=== PATIENT | male | born 1935 | race Caucasian/White ===

== ENCOUNTER 2016-06-10 11:23 | Inpatient (IN) | payer OTHER ==
[2016-06-10 11:56] LABS: % IMMATURE GRANULYOCYTES 0.6 % (0.0-1.1); ABSOLUTE IMMATURE GRANULOCYTES 0.04 10^3/uL (0.00-0.10); ADD DIFF? NO; ADD MORPH? NO; ADD SCAN? NO; ATYPICAL LYMPHOCYTE FLAG 0 (0-99); FRAGMENT RBC FLAG 0 (0-99); HEMATOCRIT 57.7 % (40.0-51.0); HEMOGLOBIN 19.3 g/dL (13.7-17.5); LEFT SHIFT FLG 10 (0-99); LIPEMIA HEMOLYSIS FLAG 80 (0-99); MEAN CELL HEMOGLOBIN 30.9 pg (27.9-34.1); MEAN CELL HEMOGLOBIN CONCENTR. 33.4 g/dL (32.4-36.7); MEAN CELL VOLUME 92.5 fL (81.5-99.8); MEAN PLATELET VOLUME 10.7 fL (8.7-11.7); PLATELET CLUMPS FLAG 0 (0-99); PLATELET COUNT 110 10^3/uL (150-400); RED BLOOD CELL COUNT 6.24 10^6/uL (4.40-6.38); RED CELL DISTRIBUTION WIDTH 14.5 % (11.5-15.2)
[2016-06-10] MEDS ORDERED: NS 500 ML IV ONE (11:58)
[2016-06-10 12:06] LABS: ALANINE AMINOTRANSFERASE 26 IU/L (21-72); ALBUMIN 3.7 g/dL (3.5-5.0); ALKALINE PHOSPHATASE 102 IU/L (38-126); ANION GAP 16 mEq/L (8-16); ASPARTATE AMINOTRANSFERASE 38 IU/L (17-59); BILIRUBIN,TOTAL 1.7 mg/dL (0.1-1.4); BILIRUBIN-CONJUGATED 0.5 mg/dL (0.0-0.5); BILIRUBIN-UNCONJUGATED 1.2 mg/dL (0.0-1.1); CALCIUM 9.2 mg/dL (8.5-10.4); CARBON DIOXIDE 23 mEq/l (22-31); CHLORIDE 105 mEq/L (97-110); CREATININE 1.5 mg/dL (0.7-1.3); GLOMERULAR FILTRATION RATE 45; GLUCOSE 99 mg/dL (70-100); POTASSIUM 4.3 mEq/L (3.5-5.2); SODIUM 144 mEq/L (134-144); TOTAL PROTEIN 6.9 g/dL (6.3-8.2)
[2016-06-10 12:13] LABS: APTT 24.5 SEC (23.0-38.0); INR 1.06 (0.83-1.16); PROTIME(PATIENT) 13.7 SEC (12.0-15.0)
--- NOTE | 2016-06-10 12:28 | EDPHY ---
H & P Stated Complaint: ?UTI/Weakness HPI/ROS: CHIEF COMPLAINT: weakness HISTORY OF PRESENT ILLNESS: approximately 2 weeks of weakness. The spouse reports that he has been increasingly weakening. No specific areas of complaint. This morning she reports that to scan her nearly an hour ago and from the restroom back in 2 bed. He has had no chest pain during any of this. No cough or fever. No headache or dizziness. No syncope. No urinary complaints but the spouse is concern about a urinary tract infection. He denies any specific systematic complaints other than generalized weakness. No particular modifying factors for this as it has steadily worsened. No alleviating factors of any kind despite [id number] medications have attempted. During my examination he is confused, and she reports that he has not been confused at home. No other associated complaints or modifying factors. REVIEW OF SYSTEMS: Ten systems reviewed and are negative unless otherwise noted in the HPI EXAMINATION General Appearance: Alert, no distress Head: normocephalic, atraumatic Eyes: Pupils equal and round, no conjunctival pallor or injection . EOM intact. ENT, Mouth: Mucous membranes Dry. Uvula midline. No lesions or edema. Neck: Normal inspection, supple, non-tender . Painless range of motion all planes. No meningismus. Respiratory: No rhonchi wheezing, consolidation, diminishment or distress. Cardiovascular: Regular rate and rhythm . No murmur. Pulses are intact distally Gastrointestinal: Abdomen is obese, soft and nontender. no CVA tenderness. No tympany rigidity. Neurological: Alert to person and place. Disoriented to time. strength is symmetric in all limbs. No sensory deficits. No unilateral abnormalities. No pronator drift or dysmetria. Skin: Warm and dry, no rash Extremities: Nontender, no pedal edema Psychiatric: Mood and affect normal DIFFERENTIAL DIAGNOSES: Including but not limited to Acute delirium, urinary tract infection, pneumonia, electrolyte disturbance, acute kidney injury, hepatic encephalopathy MDM: 11:45 a.m. increasing weakness over the past 2 days to weeks. No focal complaints. No focal findings on examination other than mild disorientation to time. No evidence of stroke by examination. Vital signs are stable. Labs and chest x- ray are pending at this time. is at bedside and has corroborated all this information. 1:05 p.m. I have re-evaluated the patient. Urinalysis does reveal evidence of acute urinary tract infection. Labs are otherwise within acceptable limits %period% creatinine is 1.5, but his actually reports that he has been diagnosed as stage III kidney dysfunction so this is an improvement. At time of arrival his vital signs were well within normal limits and he did not meet criteria for sepsis workup. However he is now tachycardic at 1:05 a.m. at this point. Thus I have ordered blood cultures and a lactic acid. Plan for admission with IV fluid resuscitation and antibiotic coverage. He remains awake and alert and hemodynamically stable with a normotensive pressure. His confusion from earlier has resolved and he is now alert to person place and time. I will discuss the case with hospitalist for admission.disposition and care 1:15 p.m. at this time, care the patient will be assumed by Dr. Mckeon. I have already admitted this patient to the hospital. I did order blood cultures and lactic acid and discussed the nature of his illness and the likely that he is septic. He is not in septic shock by examination vitals, but the lactic acid is pending at this time. Please see his note for final disposition and further information. EKG: Interpreted by Dr. Mckeon SUPERVISION: Patient was evaluated in conjunction with the supervising physician. Please see their note for details. Source: Patient - Personal History Current Tetanus/Diphtheria Vaccine: Yes Current Tetanus Diphtheria and Acellular Pertussis (TDAP): Yes Tetanus Vaccine Date: unsure - Medical/Surgical History Hx Asthma: No Hx Chronic Respiratory Disease: No Hx Diabetes: No Hx Cardiac Disease: No Hx Renal Disease: Yes Hx Cirrhosis: No Hx Alcoholism: No Hx HIV/AIDS: No Hx Splenectomy or Spleen Trauma: No Other PMH: ESRD STAGE 3, L HIP RIPLACEMENT - Social History Smoking Status: Never smoked Constitutional: Initial Vital Signs Temperature (C) 97.5 F 06/10/16 11:32 Heart Rate 80 06/10/16 11:32 Respiratory Rate 14 06/10/16 11:32 Blood Pressure 149/97 H 06/10/16 11:32 O2 Sat (%) 94 06/10/16 11:32 O2 Delivery Mode Room Air Allergies/Adverse Reactions: Penicillins Allergy (Verified 06/10/16 11:31) Home Medications: Medication Instructions Recorded Aspirin [Aspirin 81mg (OTC)] 81 mg PO DAILY 02/10/13 Atorvastatin Calcium [Lipitor 80 80 mg PO HS 02/10/13 mg] LORazepam [Ativan 0.5 mg (RX)] 0.5 mg PO HS PRN 02/10/13 Losartan Potassium [Cozaar] 50 mg PO DAILY 02/10/13 Medical Decision Making - Data Points Laboratory Results: Laboratory Results 06/10/16 11:25 06/10/16 11:25 06/10/16 06/10/16 06/10/16 15:44 13:18 12:32 WBC RBC Hgb Hct MCV MCH MCHC RDW Plt Count MPV Neut % (Auto) Lymph % (Auto) [place] % (Auto) Eos % (Auto) Baso % (Auto) Nucleat RBC Rel Count Absolute Neuts (auto) Absolute Lymphs (auto) Absolute Monos (auto) Absolute Eos (auto) Absolute Basos (auto) Absolute Nucleated RBC Immature Gran % Immature Gran # PT INR APTT VBG Lactic Acid 1.5 mmol/L 2.6 H mmol/L (0.7-2.1) (0.7-2.1) Sodium Potassium Chloride Carbon Dioxide Anion Gap BUN Creatinine Estimated GFR Glucose Calcium Total Bilirubin Conjugated Bilirubin Unconjugated Bilirubin AST ALT Alkaline Phosphatase Ammonia Creatine Kinase Total Protein Albumin Lipase Urine Color YELLOW Urine Appearance HAZY Urine pH 5.0 (5.0-7.5) Ur Specific [place] 1.019 (1.002-1.030) Urine Protein 1+ H (NEGATIVE) Urine Ketones NEGATIVE (NEGATIVE) Urine Blood 2+ H (NEGATIVE) Urine Nitrate POSITIVE H (NEGATIVE) Urine Bilirubin NEGATIVE (NEGATIVE) Urine Urobilinogen NEGATIVE EU (0.2-1.0) Ur Leukocyte Esterase 2+ H (NEGATIVE) Urine RBC 5-10 H /hpf (0-3) Urine WBC 50-182 H /hpf (0-3) Ur Epithelial Cells TRACE /lpf (NONE-1+) Urine Bacteria 4+ H /hpf (NONE SEEN) Urine Mucus 1+ /lpf (NONE-1+) Ur Culture Indicated? INDICATED H (NI) Urine Glucose NEGATIVE (NEGATIVE) 06/10/16 11:25 WBC 7.20 10^3/uL (3.80-9.50) RBC 6.24 10^6/uL (4.40-6.38) Hgb 19.3 H g/dL (13.7-17.5) Hct 57.7 H % (40.0-51.0) MCV 92.5 fL (81.5-99.8) MCH 30.9 pg (27.9-34.1) MCHC 33.4 g/dL (32.4-36.7) RDW 14.5 % (11.5-15.2) Plt Count 110 L 10^3/uL (150-400) MPV 10.7 fL (8.7-11.7) Neut % (Auto) 81.0 H % (39.3-74.2) Lymph % (Auto) 6.4 L % (15.0-45.0) [place] % (Auto) 11.0 % (4.5-13.0) Eos % (Auto) 0.4 L % (0.6-7.6) Baso % (Auto) 0.6 % (0.3-1.7) Nucleat RBC Rel Count 0.0 % (0.0-0.2) Absolute Neuts (auto) 5.84 10^3/uL (1.70-6.50) Absolute Lymphs (auto) 0.46 L 10^3/uL (1.00-3.00) Absolute Monos (auto) 0.79 10^3/uL (0.30-0.80) Absolute Eos (auto) 0.03 10^3/uL (0.03-0.40) Absolute Basos (auto) 0.04 10^3/uL (0.02-0.10) Absolute Nucleated RBC 0.00 10^3/uL (0-0.01) Immature Gran % 0.6 % (0.0-1.1) Immature Gran # 0.04 10^3/uL (0.00-0.10) PT 13.7 SEC (12.0-15.0) INR 1.06 (0.83-1.16) APTT 24.5 SEC (23.0-38.0) VBG Lactic Acid Sodium 144 mEq/L (134-144) Potassium 4.3 mEq/L (3.5-5.2) Chloride 105 mEq/L (97-110) Carbon Dioxide 23 mEq/l (22-31) Anion Gap 16 mEq/L (8-16) BUN 32 H mg/dL (7-23) Creatinine 1.5 H mg/dL (0.7-1.3) Estimated GFR 45 Glucose 99 mg/dL (70-100) Calcium 9.2 mg/dL (8.5-10.4) Total Bilirubin 1.7 H mg/dL (0.1-1.4) Conjugated Bilirubin 0.5 mg/dL (0.0-0.5) Unconjugated Bilirubin 1.2 H mg/dL (0.0-1.1) AST 38 IU/L (17-59) ALT 26 IU/L (21-72) Alkaline Phosphatase 102 IU/L (38-126) Ammonia < 9.0 L uMOL/L (9.0-30.0) Creatine Kinase 138 IU/L (0-224) Total Protein 6.9 g/dL (6.3-8.2) Albumin 3.7 g/dL (3.5-5.0) Lipase 146.0 IU/L (23-300) Urine Color Urine Appearance Urine pH Ur Specific [place] Urine Protein Urine Ketones Urine Blood Urine Nitrate Urine Bilirubin Urine Urobilinogen Ur Leukocyte Esterase Urine RBC Urine WBC Ur Epithelial Cells Urine Bacteria Urine Mucus Ur Culture Indicated? Urine Glucose Medications Given: Discontinued Medications Sodium Chloride (Ns) 500 mls @ 0 mls/hr IV ONCE ONE PRN Reason: As Directed Stop: 06/10/16 11:59 Last Admin: 06/10/16 12:23 Dose: 500 mls Ceftriaxone Sodium/Dextrose (Rocephin 1 Gm (Premix)) 50 mls @ 100 mls/hr IV EDNOW ONE PRN Reason: Protocol Stop: 06/10/16 13:37 Last Admin: 06/10/16 13:56 Dose: 50 mls Sodium Chloride (Ns) 1,000 mls @ 0 mls/hr IV ONCE ONE PRN Reason: Wide Open Stop: 06/10/16 13:09 Last Admin: 06/10/16 13:57 Dose: 1,000 mls Sodium Chloride (Ns *For Sepsis Order Set Only*) 2,341 ml IV EDNOW ONE Stop: 06/10/16 14:02 Last Admin: 06/10/16 14:18 Dose: 2,341 ml Departure - Departure Disposition: [facility] Acute Clinical Impression: Weakness, Encephalopathy, Sepsis due to urinary tract infection Condition: Good Referrals: Patient,NotPresent [Primary Care Provider] - As per Instructions
--- NOTE | 2016-06-10 12:39 | DX ---
PA and lateral chest. Clinical History: Possible pneumonia Comparison Study: None available. Findings: No focal infiltrate or pleural effusion is identified. Heart size is upper normal.. On the lateral radiograph, there is incomplete inspiration with asymmetric elevation of the right hem idiaphragm. Moderate tortuosity of the descending thoracic aorta is compatible with atherosclerotic and/or hypert ensive vascular disease.. Impression: Negative for pneumonia.
[2016-06-10 12:44] LABS: COLOR YELLOW; LEUKOCYTE ESTERASE,URINE 2+ (NEGATIVE); NITRITE,URINE POSITIVE (NEGATIVE)
[2016-06-10 12:55] LABS: BACTERIA 4+ /hpf (NONE SEEN); MUCUS 1+ /lpf (NONE-1+); WBC,URINE 50-182 /hpf (0-3)
[2016-06-10] MEDS ORDERED: NS 1,000 ML IV ONE (13:08)
--- NOTE | 2016-06-10 13:59 | CPEKG ---
Heart Rate: 73 RR Interval: 822 P-R Interval: 180 QRSD Interval: 92 QT Interval: 404 QTC Interval: 446 P Vian: 3 QRS Vian: 10 T Wave Vian: 3 EKG Severity - BORDERLINE ECG - EKG Impression: SINUS RHYTHM EKG Impression: BORDERLINE T ABNORMALITIES, INFERIOR LEADS Electronically Signed By: Agustín Mills 11-Jun-2016 14:52:33
[2016-06-10] MEDS ORDERED: NS 1,000 ML BAG *FOR SEPSIS ORDER SET ONLY IV ONE (14:01)
[2016-06-10 14:27] LABS: LACGHOST ORDER
[2016-06-10] MEDS ORDERED: ONDANSETRON 4 MG/2 ML VIAL IVP PRN (15:09)
[2016-06-10] MEDS ORDERED: ONDANSETRON DISINTEGRATING 4 MG TAB PO PRN (15:09)
--- NOTE | 2016-06-10 16:56 | GHP ---
[f rep st] HISTORY AND PHYSICAL DATE OF ADMISSION: 06/10/2016 CHIEF COMPLAINT: Weakness. HISTORY OF PRESENT ILLNESS: The patient is an 81-year-old male, whose noticed approximately 3 w eeks ago that he developed increasing weakness and continued mild confusion. The patient is confused , and difficult to obtain a history from, his is at the bedside. She states that she noticed in November the patient began to develop some generalized weakness, not being able to ambulate long dista nces anymore, however, over the past 3 weeks he has continued to become altered in his mentation and unable to ambulate independently secondary to this acute weakness. He has not complained of any ches t pain, dyspnea, or shortness of breath. He has not had any cough or fever per the patient's . He denies any headache and not complained of any dizziness. He has not had any syncopal episodes. Shay leiva does not have any urinary complaints, however, the states that he has had more frequent urinat ions. The patient denies any specific complaints at this time. REVIEW OF SYSTEMS: A comprehensive 10-point review of systems is negative, other than noted in the H PI. PAST MEDICAL HISTORY: 1. PFO revision. 2. Hypertension. 3. Hyperlipidemia. 4. Hydrocele. 5. Stage III renal disease. 6. Brain aneurysm. PAST SURGICAL HISTORY: 1. PFO revision. 2. Left hip replacement. ALLERGIES: To penicillin. HOME MEDICATIONS: Lipitor, Ativan, Cozaar, aspirin. The patient tells me he is not taking his medic ations regularly as scheduled. SOCIAL HISTORY: The patient resides with his , he denies any tobacco use. He states that he dri nks 1 to 2 alcoholic beverages a day. PHYSICAL EXAM: GENERAL: The patient is disheveled, unkempt, confused, slow to answer questions. DANIEL SIGNS: Afebrile at 97.5, pulse is 80, respiratory rate 14, blood pressure is 149/97, he is satur ating 94% on room air. HEENT: Normocephalic, atraumatic. Mucosal membranes are dry. Pupils equal, round, reactive to light. No abnormalities identified. NECK: Supple, nontender. RESPIRATORY: Re ngs clear to auscultation bilaterally. No rhonchi or wheezes appreciated. CARDIOVASCULAR: Regular rate and rhythm, no gallop or murmur noted. GASTROINTESTINAL/ABDOMEN: Bowel sounds are positive, so ft and nontender. No CVA tenderness. NEUROLOGIC: The patient is mildly disoriented, he is focally intact, is symmetrical in all limbs. SKIN: Warm and dry, with no rashes or lesions identified. EXT REMITIES: Within normal limits. There is no clubbing or cyanosis noted, no pedal edema. FAMILY HISTORY: Family history was reviewed and noncontributory. LABORATORY DATA: Hemoglobin 19.3 with hematocrit of 57.7. BUN of 32, with a creatinine of 1.5, tota l bilirubin is 1.7. Abnormal urinalysis. Blood cultures and urine cultures pending. Reports, EKG n otes a sinus rhythm. Chest x-ray personally reviewed, negative for pneumonia. ASSESSMENT AND PLAN: The patient is an 81-year-old male who presented to the emergency room with his spouse secondary to complaints of weakness. He has been evaluated and will continue treatment for: 1. A urinary tract infection. The patient may require a urology consult during this hospitalization . He does have a history of hydrocele, this does not appear to be a complication or present at this time. We will continue intravenous Rocephin, and await urine culture results. 2. Acute altered mental status. The patient is disoriented to place and time intermittently, I susp ect this is likely secondary to his acute infectious process, however, it could be evidence of furthe r brain involvement. I have discussed with the patient's regarding ordering an MRI of his brain as he does have a history of aneurysm and potential stroke activity. She wishes to hold off at this time, as she does not feel it would be beneficial in treatment. I assured her that the option could be revisited during the patient's hospitalization if he does not continue to improve and clear after treatment of his urinary tract infection. She is in agreement with this plan. She is not intereste d in adding any further daily medications to the patient's regimen such as aspirin or Plavix. She wi shes to await Neurology consult, as well as an MRI for further diagnostic management. 3. Dehydration. We will continue to hydrate the patient during this hospital course, and I anticipa te he will respond appropriately to intravenous fluids. 4. Stage III renal disease. We will repeat laboratory evaluations in the morning, after the patient has been thoroughly hydrated. 5. History of hypertension. The patient tells me that he does not take his antihypertensive medicat ions on a daily basis, he takes them as needed based on his blood pressure. We will need to further educate the patient, as well as his , regarding the necessity to be consistent with his medicatio ns at home. DISPOSITION: The patient will be admitted to observation status. We will continue to treat him supp ortively during this hospitalization with antibiotic therapy and IV fluids. If he requires more supp ortive management in the hospital setting he may transition to inpatient status. We will have Physic al Therapy and Occupational Therapy evaluate the patient during this hospitalization. He has also be en placed on Lovenox for DVT prophylaxis. I already reviewed the case with Patient's Care with Dr. Niki Cosme. /[id number]/MODL
[2016-06-10] MEDS: HEPARIN 5,000 UNIT/0.5 ML SYR SC SCH (20:33)
[2016-06-10] MEDS: NS 1,000 ML IV SCH (20:33)
[2016-06-10] MEDS: LORazepam 0.5 MG TAB PO PRN (20:33)
[2016-06-10] MEDS: ATORVASTATIN CALCIUM 40 MG TAB PO SCH (20:33)
[2016-06-10] MEDS: ACETAMINOPHEN 325 MG TAB PO PRN (20:34)
[2016-06-11] MEDS: HEPARIN 5,000 UNIT/0.5 ML SYR SC SCH ×3 (05:10→19:19)
[2016-06-11] MEDS: NS 1,000 ML IV SCH (05:10)
[2016-06-11 05:46] LABS: HEMATOCRIT 43.8 % (40.0-51.0); HEMOGLOBIN 14.9 g/dL (13.7-17.5); MEAN CELL HEMOGLOBIN 31.2 pg (27.9-34.1); MEAN CELL VOLUME 91.6 fL (81.5-99.8); RED BLOOD CELL COUNT 4.78 10^6/uL (4.40-6.38); RED CELL DISTRIBUTION WIDTH 13.6 % (11.5-15.2)
[2016-06-11 05:54] LABS: ANION GAP 6 mEq/L (8-16); CARBON DIOXIDE 21 mEq/l (22-31); CHLORIDE 114 mEq/L (97-110); CREATININE 1.1 mg/dL (0.7-1.3); GLOMERULAR FILTRATION RATE > 60; GLUCOSE 92 mg/dL (70-100); POTASSIUM 4.3 mEq/L (3.5-5.2); SODIUM 141 mEq/L (134-144)
[2016-06-11] MEDS: ASPIRIN 81 MG CHEWABLE TAB PO SCH (08:10)
[2016-06-11] MEDS: LOSARTAN POTASSIUM 50 MG TAB PO SCH (08:10)
[2016-06-11] MEDS ORDERED: ENOXAPARIN 30 MG/0.3 ML SYR SC SCH (09:00)
--- NOTE | 2016-06-11 16:19 | HOSPPROG ---
Hospitalist Progress Note Assessment/Plan: UTI - UCx growing GNR Acute encephalopathy likely secondary to infection - Improving. BERNARDINO - Cr normalized to 1.1 from 1.5 after IV hydration overnight. His po intake is good, will dc IVF's for now. DVT PPLX - JOHANNY DNR Dispo - cont inpt Objective: Vital Signs Temp Pulse Resp BP Pulse Ox 36.7 C 67 20 141/88 H 90 L 06/11/16 16:03 06/11/16 16:03 06/11/16 16:03 06/11/16 16:03 06/11/16 16:03 Laboratory Results 06/11/16 05:36 06/11/16 05:36 06/10/16 06/11/16 06/12/16 05:59 05:59 05:59 Intake Total 2400 Output Total 1 Balance 2399 PT 13.7 SEC (12.0-15.0) 06/10/16 11:25 INR 1.06 (0.83-1.16) 06/10/16 11:25 - Physical Exam Constitutional: no apparent distress Eyes: PERRL Ears, Nose, Mouth, Throat: moist mucous membranes Cardiovascular: regular rate and rhythym Respiratory: no respiratory distress Gastrointestinal: normoactive bowel sounds, soft, non-tender abdomen Skin: warm Psychiatric: encephalopathic ICD10 Worksheet Patient Problems: Problems Problem Status Diagnosed Encephalopathy Acute Sepsis secondary to UTI Acute Weakness Acute Stroke of unknown etiology Acute
[2016-06-11] MEDS: ATORVASTATIN CALCIUM 40 MG TAB PO SCH (19:29)
[2016-06-11] MEDS: LORazepam 0.5 MG TAB PO PRN (19:29)
[2016-06-12 06:27] LABS: ANION GAP 5 mEq/L (8-16); CALCIUM 8.2 mg/dL (8.5-10.4); CARBON DIOXIDE 21 mEq/l (22-31); CHLORIDE 110 mEq/L (97-110); GLOMERULAR FILTRATION RATE > 60; GLUCOSE 90 mg/dL (70-100); POTASSIUM 4.3 mEq/L (3.5-5.2); SODIUM 136 mEq/L (134-144)
[2016-06-12] MEDS: HEPARIN 5,000 UNIT/0.5 ML SYR SC SCH ×3 (06:32→22:00)
[2016-06-12 08:06] LABS: % IMMATURE GRANULYOCYTES 0.4 % (0.0-1.1); ABSOLUTE IMMATURE GRANULOCYTES 0.02 10^3/uL (0.00-0.10); ADD DIFF? NO; ADD MORPH? NO; ADD SCAN? NO; ATYPICAL LYMPHOCYTE FLAG 40 (0-99); FRAGMENT RBC FLAG 0 (0-99); HEMATOCRIT 43.2 % (40.0-51.0); HEMOGLOBIN 14.7 g/dL (13.7-17.5); LEFT SHIFT FLG 0 (0-99); LIPEMIA HEMOLYSIS FLAG 90 (0-99); MEAN CELL VOLUME 88.2 fL (81.5-99.8); MEAN PLATELET VOLUME 9.8 fL (8.7-11.7); PLATELET CLUMPS FLAG 0 (0-99); PLATELET COUNT 93 10^3/uL (150-400); RED CELL DISTRIBUTION WIDTH 13.3 % (11.5-15.2)
[2016-06-12] MEDS: ASPIRIN 81 MG CHEWABLE TAB PO SCH (09:04)
[2016-06-12] MEDS: LOSARTAN POTASSIUM 50 MG TAB PO SCH (09:04)
--- NOTE | 2016-06-12 15:54 | HOSPPROG ---
Hospitalist Progress Note Assessment/Plan: UTI - UCx growing plunkett-sensitive e coli, cont ceftriaxone. He has urgency and incontinence, query overflow incontinence. Will check bladder scan and PSA in am. Will perform BHAVIK tomorrow after PSA drawn to evaluate for prostate enlargement and possible BRADY as contributory factor to UTI. Acute encephalopathy likely secondary to infection - Improving. Gait instability - query urinary retention, check bladder scan as above. BERNARDINO - Cr normalized to 1.1 from 1.5 after IV hydration overnight. His po intake is good, will dc IVF's for now. DVT PPLX - JOHANNY DNR Dispo - cont inpt, PT recommending possible SNF rehab. Will see how he progresses with ongoing treatment of infection. Subjective: Pt feels better today. More alert. No fevers. Ambulatory status improved, but still unsteady on his feet. No N/V/D. Tolerating po well. Good uop. He void voluntarily and other times and copious incontinence. Objective: Vital Signs Temp Pulse Resp BP Pulse Ox 36.7 C 61 15 129/74 H 91 L 06/12/16 08:42 06/12/16 08:42 06/12/16 08:42 06/12/16 09:04 06/12/16 08:42 Laboratory Results 06/12/16 07:55 06/12/16 05:54 06/11/16 06/12/16 06/13/16 05:59 05:59 05:59 Intake Total 3417 Balance 3417 PT 13.7 SEC (12.0-15.0) 06/10/16 11:25 INR 1.06 (0.83-1.16) 06/10/16 11:25 ICD10 Worksheet Patient Problems: Problems Problem Status Diagnosed Encephalopathy Acute Sepsis secondary to UTI Acute Weakness Acute Stroke of unknown etiology Acute
[2016-06-12] MEDS: ATORVASTATIN CALCIUM 40 MG TAB PO SCH (22:00)
[2016-06-13] MEDS: NS 1,000 ML IV SCH (01:17)
[2016-06-13 05:26] LABS: HEMATOCRIT 43.9 % (40.0-51.0); HEMOGLOBIN 14.7 g/dL (13.7-17.5); MEAN CELL HEMOGLOBIN 29.4 pg (27.9-34.1); MEAN CELL HEMOGLOBIN CONCENTR. 33.5 g/dL (32.4-36.7); MEAN CELL VOLUME 87.8 fL (81.5-99.8); RED CELL DISTRIBUTION WIDTH 13.4 % (11.5-15.2)
[2016-06-13] MEDS: HEPARIN 5,000 UNIT/0.5 ML SYR SC SCH ×3 (06:01→21:27)
[2016-06-13] MEDS: ASPIRIN 81 MG CHEWABLE TAB PO SCH ×3 (08:51→09:20)
[2016-06-13] MEDS: LOSARTAN POTASSIUM 50 MG TAB PO SCH ×2 (08:52→09:20)
--- NOTE | 2016-06-13 14:31 | HOSPPROG ---
Hospitalist Progress Note Assessment/Plan: UTI - UCx growing plunkett-sensitive e coli, cont ceftriaxone. Pt is incontinent. Bladder scan did not reveal e/o urinary retention. BHAVIK revealed enlarged prostate, PSA before exam was 4.2. Outpt Urology f/u with Dr. Hu recommended. Acute encephalopathy likely secondary to infection - Improving. I suspect he has some baseline cognitive impairment. Cog eval tomorrow. 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 This seemed to improve since admission, but he is less ambulatory today due to right foot pain. Dysphagia - new symptom last night, had a chocking event. Speech eval recommends nectar thick. Given this new symptom, along with increased difficulty with ambulation today and overall difficult historian, will check brain MRI in am to ensure no new infarct. H/O CVA - see above, MRI in am. Cont ASA, statin. Right foot pain - no obvious gouty appearance to right great toe. Will check x- ray and uric acid level. BERNARDINO - Cr normalized to 1.1 from 1.5 after IV hydration. His po intake is good. DVT PPLX - JOHANNY DNR Dispo - cont inpt, PT recommending possible SNF vs inpt rehab. CM involved. Subjective: Pt c/o right foot pain today, thinks it's gout. He is not ambulating today, which is a change. Last night, he choked on water and per his RN "had some difficulty talking". Clarification reveals this was more a hoarse voice related to choking rather than dysarthria or aphasia, though overall unclear. No fevers/chills. Objective: Vital Signs Temp Pulse Resp BP Pulse Ox 37.6 C 66 17 123/71 H 91 L 06/13/16 08:42 06/13/16 08:42 06/13/16 08:42 06/13/16 09:20 06/13/16 08:42 Laboratory Results 06/13/16 05:11 06/12/16 05:54 06/12/16 06/13/16 06/14/16 05:59 05:59 05:59 Intake Total 3417 365 Balance 3417 365 PT 13.7 SEC (12.0-15.0) 06/10/16 11:25 INR 1.06 (0.83-1.16) 06/10/16 11:25 - Physical Exam Constitutional: no apparent distress Eyes: PERRL Ears, Nose, Mouth, Throat: moist mucous membranes Cardiovascular: regular rate and rhythym Respiratory: no respiratory distress, clear to auscultation Gastrointestinal: normoactive bowel sounds, soft, non-tender abdomen Genitourinary: other (BHAVIK reveal enlarged prostate, irregular contour) Skin: warm Musculoskeletal: other (right foot with tenderness over 1st metatarsal and some associated swelling) Neurologic: AAOx3 Psychiatric: poor memory ICD10 Worksheet Patient Problems: Problems Problem Status Diagnosed Encephalopathy Acute Sepsis secondary to UTI Acute Weakness Acute Stroke of unknown etiology Acute
[2016-06-13] MEDS: INDOMETHACIN 25 MG CAP PO SCH (17:59)
--- NOTE | 2016-06-13 20:02 | DX ---
Foot, Minimum Three Views Right History: Swelling. Comparison: None. Findings: No acute fracture or dislocation identified. Diffuse soft tissue swelling. Small plantar ca lcaneal spur. Periarticular osteopenia throughout the toes, metatarsals, and tarsal bones. No definit e destructive osseous lesions. Mild osteoarthritis first metatarsophalangeal joint. Impression: 1. No definite acute fracture. 2. Diffuse osteopenia. 3. Diffuse soft tissue swelling. 4. Mild osteoarthritis first metatarsophalangeal joint. 5. No definite destructive osseous lesions. 6. Consider additional imaging.
[2016-06-13] MEDS: LORazepam 0.5 MG TAB PO PRN (21:27)
[2016-06-13] MEDS: ATORVASTATIN CALCIUM 40 MG TAB PO SCH (21:27)
[2016-06-13] MEDS: ACETAMINOPHEN 325 MG TAB PO PRN (21:28)
[2016-06-14] MEDS: NS 1,000 ML IV SCH (00:16)
[2016-06-14] MEDS: HEPARIN 5,000 UNIT/0.5 ML SYR SC SCH ×3 (05:21→22:35)
[2016-06-14 06:43] LABS: ANION GAP 4 mEq/L (8-16); CALCIUM 8.2 mg/dL (8.5-10.4); CARBON DIOXIDE 24 mEq/l (22-31); CHLORIDE 109 mEq/L (97-110); GLOMERULAR FILTRATION RATE > 60; GLUCOSE 93 mg/dL (70-100); POTASSIUM 4.3 mEq/L (3.5-5.2); SODIUM 137 mEq/L (134-144)
[2016-06-14] MEDS: ASPIRIN 81 MG CHEWABLE TAB PO SCH (09:19)
[2016-06-14] MEDS: LOSARTAN POTASSIUM 50 MG TAB PO SCH (09:19)
[2016-06-14] MEDS: INDOMETHACIN 25 MG CAP PO SCH ×2 (09:19→18:46)
--- NOTE | 2016-06-14 09:39 | MR ---
MRI of the Brain (Without Contrast) 06/14/2016 Clinical Indication: History of CVA, dysphagia and difficulty with gait. Technique: T1-weighted images were acquired axially and sagittally from the foramen magnum to the ve rtex. Axial FLAIR, fast T2-weighted, and diffusion-weighted axial images were obtained without contr ast. Findings: Severe underlying cerebellar and cerebral atrophy is present, associated with moderate to a dvanced white matter microvascular ischemic gliosis. No areas of diffusion restriction to suggest acu te cortical ischemia. There is a 5.5 x 4.8 cm cystic mass within the left temporal fossa compatible with an enlarged arachn oid cyst. Craniocervical junction and skull base appear otherwise unremarkable. Carotid and vertebral basilar f low voids are present. Impression: 1. Underlying cerebral and cerebellar atrophy with white matter microvascular ischemic gliosis. No ev idence of acute cortical ischemia. 2. 5.5 x 4.8 cm cystic mass within the left temporal fossa compatible with an arachnoid cyst.
--- NOTE | 2016-06-14 16:05 | HOSPPROG ---
Hospitalist Progress Note Assessment/Plan: # Acute UTI - UCx growing plunkett-sensitive e coli- -cont ceftriaxone # Acute urinary incontinence-Bladder scan did not reveal e/o urinary retention- BHAVIK revealed enlarged prostate, PSA before exam was 4.2 - Outpt Urology f/u with Dr. Hu recommended. 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 Cont ASA, statin. # BERNARDINO - Cr normalized to 1.0 from 1.5 after IV hydration- oxygen saturations 95 % on room air - continue to monitor # DVT PPLX - JOHANNY # DNR # Dispo - cont inpt, PT recommending possible SNF vs inpt rehab. CM involved. I have discussed the case with case management working on intermediate facility placement Subjective: denies new pain Objective: Vital Signs Temp Pulse Resp BP Pulse Ox 36.8 C 59 L 20 126/78 H 99 06/14/16 08:15 06/14/16 08:15 06/14/16 08:15 06/14/16 09:19 06/14/16 08:15 Laboratory Results 06/13/16 05:11 06/14/16 05:57 06/13/16 06/14/16 06/15/16 05:59 05:59 05:59 Intake Total 2282 Balance 2282 PT 13.7 SEC (12.0-15.0) 06/10/16 11:25 INR 1.06 (0.83-1.16) 06/10/16 11:25 - Physical Exam Constitutional: chronically ill appearing Eyes: anicteric sclera Ears, Nose, Mouth, Throat: dry mucous membranes Cardiovascular: regular rate and rhythym, systolic murmur Respiratory: no respiratory distress, no rales or rhonchi Gastrointestinal: normoactive bowel sounds, soft, non-tender abdomen Genitourinary: no bladder fullness Skin: warm, normal color Musculoskeletal: No asymmetric calves Neurologic: AAOx3 Psychiatric: interacting appropriately, not anxious Lymph, Heme, Immunologic: no cervical LAD ICD10 Worksheet Patient Problems: Problems Problem Status Diagnosed Encephalopathy Acute Sepsis secondary to UTI Acute Weakness Acute Stroke of unknown etiology Acute
[2016-06-14] MEDS: ATORVASTATIN CALCIUM 40 MG TAB PO SCH (22:36)
[2016-06-14] MEDS: COLCHICINE 0.6 MG CAP/TAB PO SCH (22:37)
[2016-06-15] MEDS: INDOMETHACIN 25 MG CAP PO SCH ×2 (08:19→12:18)
[2016-06-15] MEDS: COLCHICINE 0.6 MG CAP/TAB PO SCH (08:19)
[2016-06-15] MEDS: LOSARTAN POTASSIUM 50 MG TAB PO SCH (08:20)
[2016-06-15] MEDS: ASPIRIN 81 MG CHEWABLE TAB PO SCH (08:22)
[2016-06-15 08:40] VITALS: BP 124/80; PULSE 60; RESP 18; TEMP 98; O2SAT 92
--- NOTE | 2016-06-15 10:23 | PDIAF ---
- Diagnosis Diagnosis: uti Code Status: Do Not Resuscitate - Medication Management Discharge Medications: Medications to Continue on Transfer Aspirin [Aspirin 81mg (*)] 81 mg PO DAILY 02/10/13 [Last Taken 03/23/16] Atorvastatin Calcium [Lipitor 80 mg] 80 mg PO HS 02/10/13 [Last Taken 04/06/16] LORazepam [Ativan (*)] 0.5 mg PO HS PRN 02/10/13 [Last Taken 1 Day Ago] Losartan Potassium [Cozaar 50 mg (*)] 50 mg PO DAILY 02/10/13 [Last Taken ] Colchicine [Colchicine (*)] 0.6 mg PO BID #0 ea 06/15/16 [Last Taken Unknown] Indomethacin [Indocin 25 mg (*)] 25 mg PO TIDMEAL #0 cap 06/15/16 [Last Taken Unknown] levOFLOXACIN [levAQUIN (*)] 750 mg PO DAILY #4 tab 06/15/16 [Last Taken Unknown] Discharge Medications: Refer to the Discharge Home Medication list for PRN reason. - Orders Services needed: Registered Nurse, Physical Therapy, Occupational Therapy Diet Texture: Regular Texture Diet, Thin Liquids, Meds Whole w/Liquids - Follow Up Care Current Providers and Referrals: Patient,NotPresent [Unknown] - As per Instructions
[2016-06-15] MEDS ORDERED: FLU VACC TS 2016-17(65YR+)/PF 0.5 ML SYR (FLUZONE HIGH DOSE) IM ONE (12:41)
[2016-06-15] MEDS: HEPARIN 5,000 UNIT/0.5 ML SYR SC SCH (14:16)
--- NOTE | 2016-06-15 19:10 | GDS ---
[f rep st] DISCHARGE SUMMARY DISCHARGE DIAGNOSES: 1. Acute urinary tract infection secondary to Escherichia coli. 2. Acute encephalopathy secondary to urinary tract infection. 3. Urinary incontinence, chronic. 4. Acute right foot gout attack. 5. 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 6. History of embolic cerebellar EDIN, MCA cerebrovascular accident in 2012. 7. Chronic dysphagia. 8. Acute kidney injury secondary to hypovolemia. HISTORY OF PRESENT ILLNESS: This is an 81-year-old male who presented on 06/10/2016 with complaints of weakness. For details of the patient's initial presentation, please see the history and physica l dated 06/10/2016. PROCEDURES: On 06/13/2016, patient had a plain film of the right foot which showed no acute osseous abnormality. On 06/13/2016, patient had an MRI of the brain, which showed underlying cerebellar an d cerebral atrophy with no acute stroke. HOSPITAL COURSE: 1. Acute urinary tract infection. Patient was empirically placed on IV antibiotics. Culture did c onfirm E coli sensitive to all tested antibiotics. The patient is being transitioned from IV ceftri axone to oral levofloxacin to complete a 7-day course. 2. Coagulase negative staph bacteremia. The patient had blood cultures drawn on the day of hospita lization that did grow 1 of 2 bottles culture with what is presumed to be contaminant. Shayan clements is being discharged on oral levofloxacin for UTI as above. No additional antibiotics as this is not thought to be pathologic. The cultures were reviewed with Infectious Disease. 3. Acute encephalopathy secondary to acute infection. The patient's mental status did clear during early part of his hospital stay. The patient was suspected to have some baseline cognitive dysfunc tion. 4. History of CVA. Patient did not have any acute events during hospital stay and was discharged o n his home medication without alteration. 5. Acute kidney injury, secondary to hypovolemia. Patient received fluid resuscitation and had nor malization of his renal function. Creatinine on the day of disposition was 1.0. 6. Chronic urinary incontinence and retention. The patient did have an abnormal BHAVIK by the hospita list during this stay. PSA was checked and was mildly elevated at 0.17. It has been recommended th e patient follow with outpatient urology, Dr. Hu. DISCHARGE MEDICATIONS: Please reference medication reconciliation printed on 06/15/2016. PENDING STUDIES: At the time of this dictation are none. FOLLOWUP APPOINTMENTS: Include with his primary care provider post disposition from halfway for followup of his urinary retention as well his ongoing management of history of stroke. I spent greater than 30 minutes in the planning and coordination of this discharge. /[id number]/MODL
== END 2016-06-15 15:15 | DRG 689 ==
LOC: EDUNIT# → INTOOBSV 13:16 → F1N 17:37 → OBSVTOIN 06-11 16:19
PROVIDERS: ADMIT Internal Medicine; ATTEND Hospitalist
DX: N39.0 Urinary tract infection, site not specified (principal); B96.20 Unspecified Escherichia coli [E. coli] as the cause of diseases classified elsewhere; G93.40 Encephalopathy, unspecified; N17.9 Acute kidney failure, unspecified; M10.9 Gout, unspecified; R13.10 Dysphagia, unspecified; R32 Unspecified urinary incontinence; R33.9 Retention of urine, unspecified; R26.0 Ataxic gait; N18.3 Chronic kidney disease, stage 3 (moderate); I12.9 Hypertensive chronic kidney disease with stage 1 through stage 4 chronic kidney disease, or unspecified chronic kidney disease; I69.393 Ataxia following cerebral infarction; Z66 Do not resuscitate; Z23 Encounter for immunization
CPT/HCPCS: 92523-GN; 92526-GN; 92610-GN; 96365; 97116-GP; 97162-GP; 97165-GO; 97530-GP; G0008; G0103; G0378; G8978-GP-CJ; G8979-GP-CI; G8987-GO-CK; G8988-GO-CI; G8996-GN-CI; G8997-GN-CI; J0696; J2405

== ENCOUNTER → 2016-08-24 | Outpatient (CLI) | payer OTHER | LOC: BHFA 10:00 | PROVIDERS: ATTEND Internal Medicine Cardiovascular Disease | DX: R06.00 Dyspnea, unspecified (principal) ==

== ENCOUNTER → 2016-09-10 | Outpatient (CLI) | payer OTHER ==
[~2016-09-10] MED LIST: IOPAMIDOL (ISOVUE-300) 100 ML BTL ONE
== END ==
LOC: FIMAGING 10:22
PROVIDERS: ATTEND Specialist
DX: N39.0 Urinary tract infection, site not specified (principal); N28.1 Cyst of kidney, acquired; K57.30 Diverticulosis of large intestine without perforation or abscess without bleeding; K80.20 Calculus of gallbladder without cholecystitis without obstruction; K40.90 Unilateral inguinal hernia, without obstruction or gangrene, not specified as recurrent; I70.0 Atherosclerosis of aorta
CPT/HCPCS: 74178; Q9967

== ENCOUNTER 2016-10-06 13:51 | Emergency (ER) | payer OTHER ==
[2016-10-06 14:03] VITALS: TEMP 98.1
--- NOTE | 2016-10-06 15:00 | EDPHY ---
H & P Stated Complaint: rt rib pain Time Seen by Provider: 10/06/16 14:25 HPI/ROS: CHIEF COMPLAINT: Mechanical fall, right rib pain HISTORY OF PRESENT ILLNESS: The patient presents to the ED for evaluation of right rib pain following a mechanical fall. The patient was walking with a walker when he accidentally stumbled over a discontinuity in the sidewalk. The patient fell backwards landing primarily on his right back. He did mildly strike his head but did not lose consciousness. He has no complaints of acute headache, vomiting, numbness, weakness or cervical neck pain. The patient is not on anticoagulants. He does have a history of chronic renal insufficiency and urinary tract infections. The patient denies any additional complaints. REVIEW OF SYSTEMS: A comprehensive 10 point review of systems is otherwise negative aside from elements mentioned in the history of present illness. 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?) - Social History Smoking Status: Never smoked - Physical Exam Exam: General Appearance: Alert, no distress Head: Atraumatic Eyes: Pupils equal, round, reactive ENT, Mouth: No hemotympanum, no oral trauma Neck: Nontender, trachea midline Respiratory: Tenderness to palpation along the right posterior ribs, no subcutaneous emphysema Cardiovascular: Regular rate and rhythm Abdomen: Abdomen is soft and nontender, pelvis stable Skin: No lacerations, No abrasion Back: No midline T/L/S pain Extremities: Nontender, full range of motion Neurological: A&Ox3, normal motor function, normal sensory exam Constitutional: Initial Vital Signs Temperature (C) 36.7 C 10/06/16 14:01 Heart Rate 78 10/06/16 14:01 Respiratory Rate 18 10/06/16 14:01 Blood Pressure 160/101 H 10/06/16 14:01 O2 Sat (%) 92 10/06/16 14:01 O2 Delivery Mode Room Air Allergies/Adverse Reactions: Penicillins Allergy (Verified 06/10/16 11:31) Home Medications: Medication Instructions Recorded Aspirin [Aspirin 81mg (*)] 81 mg PO DAILY 02/10/13 Atorvastatin Calcium [Lipitor 80 80 mg PO HS 02/10/13 mg] LORazepam [Ativan (*)] 0.5 mg PO HS PRN 02/10/13 Losartan Potassium [Cozaar 50 mg 50 mg PO DAILY 02/10/13 (*)] Colchicine [Colchicine (*)] 0.6 mg PO BID #0 ea 06/15/16 Indomethacin [Indocin 25 mg (*)] 25 mg PO TIDMEAL #0 cap 06/15/16 levOFLOXACIN [levAQUIN (*)] 750 mg PO DAILY #4 tab 06/15/16 Medical Decision Making - Diagnostics Imaging Results: Imaging Impressions Chest X-Ray 10/06/16 14:26 Impression: Nothing acute identified. Chest x-ray PA lateral: Images reviewed by myself, negative for rib fracture, pneumothorax or hemothorax. ED Course/Re-evaluation: The patient presents to the ED with complaints of right rib pain following a mechanical fall. His x-ray demonstrates no evidence of a rib fracture, pneumothorax or hemothorax. The patient is noted to be neurologically intact with a GCS of 15. He has no complaints of headache, the patient's neck is nontender and I have cleared him via nexus criteria. The patient is hemodynamically stable. His abdominal examination is benign. The patient will be discharged home with instructions to take Tylenol as needed for pain. The patient will with his regular physician as needed. He is given customary aftercare and discharge instructions. Differential Diagnosis: Differential diagnosis considered includes rib fracture, pneumothorax, hemothorax Departure - Departure Disposition: Home, Routine, Self-Care Clinical Impression: Chest wall contusion Condition: Good Instructions: Chest Wall Pain (ED) Additional Instructions: 1. Tylenol as needed for pain control. 2. Return to the ED immediately for any headache, vomiting, abnormal behavior, increasing pain, difficulty breathing or other concerns. 3. Please follow up with your primary care provider Dr. Valdez for a blood pressure recheck in the next week. You did have slightly elevated blood pressure when you checked into the ED today. Referrals: Sam Valdez MD [Medical Doctor] - As per Instructions
[2016-10-06 15:31] VITALS: BP 150/106; PULSE 62; RESP 16; O2SAT 94
== END 2016-10-06 15:31 | disposition home or self-care (01) ==
LOC: EDUNIT#
DX: S20.211A Contusion of right front wall of thorax, initial encounter (principal); Z79.82 Long term (current) use of aspirin; W01.198A Fall on same level from slipping, tripping and stumbling with subsequent striking against other object, initial encounter; Y92.480 Sidewalk as the place of occurrence of the external cause; Y99.8 Other external cause status; Y93.89 Activity, other specified

== ENCOUNTER 2017-02-15 10:08 | Inpatient (IN) | payer OTHER ==
--- NOTE | 2017-02-15 10:27 | EDPHY ---
H & P Stated Complaint: mechanical fall in shower 2 days ago--c/o lumbar pain Time Seen by Provider: 02/15/17 10:24 HPI/ROS: HPI: This is a 81-year-old male who presents with Chief Complaint: Mechanical fall getting out of the shower Location: Lower back Quality: Pain Duration: 2 days Signs and Symptoms: No bleeding, no radiation, no numbness, no weakness, no tingling, no incontinence, + mild decreased range of motion Timing: Worsening Severity: Moderate Context: Patient presents via EMS after he sustained a fall while getting out of the shower and somehow hurt his back. Patient reports that his was there and she was unable to hold him. He reports that he has a history of balance deficits secondary to brain condition. He denies losing consciousness or dizziness. He reports that he waited 2 days as he was hoping that the pain would go away but it has not and in fact has continued to worsen to moderate, constant, nonradiating aching pain. He reports that EMS gave him some pain medicine that has completely relieve the pain; he is unsure the name. No EMS at bedside. not at bedside. He denies chest pain/shortness of breath/ headache/neck pain/abdominal pain/nausea/vomiting. Takes baby aspirin daily. Modifying Factors: See HPI Comment: ROS: see HPI Constitutional: No fever, no chills, no weight loss Eyes: No blurred vision Respiratory: No shortness of breath, no cough Cardiovascular: No chest pain Gastrointestinal: No nausea, no vomiting no diarrhea Genitourinary: No dysuria Extremities: No myalgias Neurologic: No weakness, no numbness Skin: No rashes Hematologic: No bruising, no bleeding MEDICAL/SURGICAL/SOCIAL HISTORY: Medical history: ESRD STAGE 3, L HIP RIPLACEMENT, PFO, hydrocele repair, anneurysm brain Surgical history: Denies Social history: Lives with , on hospice CONSTITUTIONAL: elderly white male, wearing nasal cannula, awake and alert, no obvious distress HEENT: Atraumatic and normocephalic, PERRL, EOMI. no globe entrapment, no raccoon eyes. no Mcmanus signs.Tympanic membranes clear. No tympanic membrane rupture. Nares patent; no septal hematoma. Oropharynx clear, no exudate and moist pink mucosa. No malocclusion. no dental trauma. Airway patent. No lymphadenopathy. NECK: supple, no midline tenderness, flexion 45 degrees, extension 45 degrees, right and left lateral flexion 45 degrees. No meningismus. Cardiovascular: Normal S1/S2, regular rate, regular rhythm, without murmur rub or gallop. PULMONARY/CHEST: Symmetrical and nontender. no crepitus. Clear to auscultation bilaterally. Good air movement. No accessory muscle usage. ABDOMEN: Soft, nondistended, nontender, no ecchymosis, no rebound, no guarding , no peritoneal signs, no masses or organomegaly. No CVAT. PELVIC: no pain with rocking; bilateral hips flexion 125 degrees, extension 30 degrees, with no pain internal rotation and no pain external rotation. BACK: lumbar midline tenderness, no paraspinous spasm, deep tendon reflexes 2/2 , no pain with straight leg raise EXTREMITIES: 2/2 pulses, no deformities, no clubbing, no cyanosis or edema. NEUROLOGICAL: no focal neuro deficits. GCS 15. SKIN: Warm and dry, leathery, no erythema. no rash. Good capillary refill. Source: Patient Exam Limitations: Clinical condition - Personal History Current Tetanus/Diphtheria Vaccine: Unsure Current Tetanus Diphtheria and Acellular Pertussis (TDAP): Unsure Tetanus Vaccine Date: unsure - Medical/Surgical History Hx Asthma: No Hx Chronic Respiratory Disease: No Hx Diabetes: No Hx Cardiac Disease: No Hx Renal Disease: Yes Hx Cirrhosis: No Hx Alcoholism: No Hx HIV/AIDS: No Hx Splenectomy or Spleen Trauma: No Other PMH: ESRD STAGE 3, L HIP RIPLACEMENT, PFO, hydrocele repair, anneurysm brain - Social History Smoking Status: Never smoked Constitutional: Initial Vital Signs Temperature (C) 37.0 C 02/15/17 10:18 Heart Rate 80 02/15/17 10:18 Respiratory Rate 16 02/15/17 10:18 Blood Pressure 138/90 H 02/15/17 10:18 O2 Sat (%) 99 02/15/17 10:18 O2 Delivery Mode Nasal Cannula O2 (L/minute) 1 Allergies/Adverse Reactions: Penicillins Allergy (Verified 06/10/16 11:31) Home Medications: Medication Instructions Recorded Acetaminophen [Tylenol 325mg (*)] 325 mg PO DAILY PRN 02/15/17 Clindamycin HCl [Clindamycin] 600 mg PO AD PRN 02/15/17 Medical Decision Making - Diagnostics Imaging Results: Imaging Impressions Lumbar Spine CT 02/15/17 10:23 Impression: 1. There is a new acute mild L1 compression, superimposed upon an old mild compression. If pain control is an issue, the patient could possibly benefit from an L1 kyphoplasty. If that is the case, then consultation with interventional radiology might be useful. 2. Suspect new nondisplaced left T12 posterior element fracture, stable. Results discussed with Sylvia Luis at 11:17 am. ED Course/Re-evaluation: CT lumbar without contrast ordered fall accidental in nature; no LOC 1025: Upon arrival to the ER patient denies pain No signs of neurovascular compromise/tenting of skin/compartment syndrome/ extremities and joints examined above and below area of concern and are neurovascularly intact. 1120: Called by radiologist who advised CT lumbar scar shows acute L1 mild compression fracture supra imposed on an old fracture as well as nondisplaced T12 posterior element fracture is now at bedside reports he normally walks with the aid of a walker. She has noticed over the past couple days he has been more unsteady. She is concerned that he may have an urinary tract infection. She reports that she will be unable to take care of him at home. Labs and urinalysis and now ordered 1150: ED decision to consult for admission as patient unable to bear weight and will need pain control; labs reviewed and showed no leukocytosis, creatinine noted in consistent with chronic kidney disease stage 3. Urinalysis pending at time of consult. Differential Diagnosis: Back pain including but not limited to muscular pain, herniated disc, spine fracture, intra-abdominal causes and urinary tract infection. - Data Points Laboratory Results: Laboratory Results 02/15/17 10:15 02/15/17 10:15 02/15/17 02/15/17 02/15/17 12:05 10:15 10:15 WBC 5.77 10^3/uL 10^3/uL (3.80-9.50) RBC 5.71 10^6/uL 10^6/uL (4.40-6.38) Hgb 18.3 g/dL H g/dL (13.7-17.5) Hct 52.7 % H % (40.0-51.0) MCV 92.3 fL fL (81.5-99.8) MCH 32.0 pg pg (27.9-34.1) MCHC 34.7 g/dL g/dL (32.4-36.7) RDW 14.4 % % (11.5-15.2) Plt Count 101 10^3/uL L 10^3/uL (150-400) MPV 9.8 fL fL (8.7-11.7) Neut % (Auto) 70.3 % % (39.3-74.2) Lymph % (Auto) 12.3 % L % (15.0-45.0) Kaufman % (Auto) 14.0 % H % (4.5-13.0) Eos % (Auto) 2.3 % % (0.6-7.6) Baso % (Auto) 0.2 % L % (0.3-1.7) Nucleat RBC Rel Count 0.0 % % (0.0-0.2) Absolute Neuts (auto) 4.06 10^3/uL 10^3/uL (1.70-6.50) Absolute Lymphs (auto) 0.71 10^3/uL L 10^3/uL (1.00-3.00) Absolute Monos (auto) 0.81 10^3/uL H 10^3/uL (0.30-0.80) Absolute Eos (auto) 0.13 10^3/uL 10^3/uL (0.03-0.40) Absolute Basos (auto) 0.01 10^3/uL L 10^3/uL (0.02-0.10) Absolute Nucleated RBC 0.00 10^3/uL 10^3/uL (0-0.01) Immature Gran % 0.9 % % (0.0-1.1) Immature Gran # 0.05 10^3/uL 10^3/uL (0.00-0.10) Sodium 139 mEq/L mEq/L (134-144) Potassium 4.5 mEq/L mEq/L (3.5-5.2) Chloride 104 mEq/L mEq/L (97-110) Carbon Dioxide 24 mEq/l mEq/l (22-31) Anion Gap 11 mEq/L mEq/L (8-16) BUN 23 mg/dL mg/dL (7-23) Creatinine 1.7 mg/dL H mg/dL (0.7-1.3) Estimated GFR 39 Glucose 110 mg/dL H mg/dL (70-100) Calcium 9.4 mg/dL mg/dL (8.5-10.4) Urine Color YELLOW Urine Appearance CLEAR Urine pH 5.0 (5.0-7.5) Ur Specific [place] 1.015 (1.002-1.030) Urine Protein 2+ H (NEGATIVE) Urine Ketones NEGATIVE (NEGATIVE) Urine Blood 2+ H (NEGATIVE) Urine Nitrate NEGATIVE (NEGATIVE) Urine Bilirubin NEGATIVE (NEGATIVE) Urine Urobilinogen NEGATIVE EU EU (0.2-1.0) Ur Leukocyte Esterase NEGATIVE (NEGATIVE) Urine RBC 25-50 /hpf H /hpf (0-3) Urine WBC 1-3 /hpf /hpf (0-3) Ur Epithelial Cells NONE SEEN /lpf /lpf (NONE-1+) Urine Mucus 1+ /lpf /lpf (NONE-1+) Urine Glucose NEGATIVE (NEGATIVE) Medications Given: Hydrocodone Bitart/Acetaminophen (Cavour 5/325) 1 - 2 tab PO Q4HRS PRN PRN Reason: Pain, Moderate Able to Take PO Stop: 02/25/17 12:32 Last Admin: 02/15/17 13:09 Dose: 1 tab Departure - Departure [facility] Clinical Impression: T12 vertebral fracture Qualifiers: Encounter type: initial encounter Fracture type: closed Fracture morphology: other fracture Qualified Code(s): S22.088A - Other fracture of T11-T12 vertebra , initial encounter for closed fracture Compression fracture of L1 lumbar vertebra Qualifiers: Encounter type: initial encounter Fracture type: closed Qualified Code(s): S32.010A - Wedge compression fracture of first lumbar vertebra, initial encounter for closed fracture
[2017-02-15 11:35] LABS: % IMMATURE GRANULYOCYTES 0.9 % (0.0-1.1); ABSOLUTE IMMATURE GRANULOCYTES 0.05 10^3/uL (0.00-0.10); ADD DIFF? NO; ADD MORPH? NO; ADD SCAN? NO; ATYPICAL LYMPHOCYTE FLAG 0 (0-99); FRAGMENT RBC FLAG 0 (0-99); HEMATOCRIT 52.7 % (40.0-51.0); HEMOGLOBIN 18.3 g/dL (13.7-17.5); LEFT SHIFT FLG 0 (0-99); LIPEMIA HEMOLYSIS FLAG 90 (0-99); MEAN CELL HEMOGLOBIN CONCENTR. 34.7 g/dL (32.4-36.7); MEAN CELL VOLUME 92.3 fL (81.5-99.8); MEAN PLATELET VOLUME 9.8 fL (8.7-11.7); PLATELET CLUMPS FLAG 10 (0-99); PLATELET COUNT 101 10^3/uL (150-400); RED BLOOD CELL COUNT 5.71 10^6/uL (4.40-6.38); RED CELL DISTRIBUTION WIDTH 14.4 % (11.5-15.2)
[2017-02-15 11:42] LABS: ANION GAP 11 mEq/L (8-16); CALCIUM 9.4 mg/dL (8.5-10.4); CARBON DIOXIDE 24 mEq/l (22-31); CHLORIDE 104 mEq/L (97-110); CREATININE 1.7 mg/dL (0.7-1.3); GLOMERULAR FILTRATION RATE 39; GLUCOSE 110 mg/dL (70-100); POTASSIUM 4.5 mEq/L (3.5-5.2); SODIUM 139 mEq/L (134-144)
[2017-02-15] MEDS ORDERED: ONDANSETRON DISINTEGRATING 4 MG TAB PO PRN (12:33)
[2017-02-15] MEDS ORDERED: ONDANSETRON 4 MG/2 ML VIAL IVP PRN (12:33)
[2017-02-15] MEDS ORDERED: NS 1,000 ML IV SCH (12:45)
[2017-02-15 12:56] LABS: COLOR YELLOW; LEUKOCYTE ESTERASE,URINE NEGATIVE (NEGATIVE); NITRITE,URINE NEGATIVE (NEGATIVE)
[2017-02-15] MEDS ORDERED: HYDROCODONE/APAP 5/325 TAB ONE (13:03)
[2017-02-15] MEDS: HYDROCODONE/APAP 5/325 TAB PO PRN (13:09)
[2017-02-15 13:10] LABS: MUCUS 1+ /lpf (NONE-1+); RBC,URINE 25-50 /hpf (0-3)
[2017-02-15] MEDS ORDERED: oxyCODONE IR 5 MG TAB PO PRN (13:53)
--- NOTE | 2017-02-15 14:06 | WOCRNPDOC ---
WOCRN Advanced Assessment Note - Skin Integrity Problem, Advanced Assess Left Posterior Lower Leg Dressing Type: Abdominal Pads, Contact Layer (bunched up and non intact) Exudate Amount: Minimal Exudate Characteristic(s): Sanguinous Integumentary Issue Intervention: Dressing Removed Wound Bed Constitution: Granulation Tissue Site Measurement - Head-to-Toe Length X Width X Depth (cm): 7x5x0.1 Skin Integrity Problem Comment: Category 2 B skin tear with dark flap.. only 20 % flap remaining. Patient in screaming pain for dressing removal that was placed by patient's daughter. Once removed skin tear policy was followed with Mepitel substituted for Adaptic Touch due to patient's low tolerance to pain. Wound care will sign off.
--- NOTE | 2017-02-15 17:39 | PDGENHP ---
History and Physical - Chief Complaint weakness/pain - History of Present Illness 81 yo male brought to ER today by his because of worsening pain after a fall in the shower a few days ago. says he 'got dizzy' when standing in the shower, and she tried to catch him, but he slumped down, landing on buttocks. Denies LOC. Thinks head hit wall as he leaned back, but says he hasn' t had any headache/vision or speech changes. Complained of back pain, which has been progressing/not resolving. Very hard to ambulate at house bc of pain. No f/ v/d/recent illness. Has had UTIs before with some confusion. Denies 'confusion' per se, but concerned re recurrent infections. No CP/SOB. Occ gets dizzy when standing, but no vertigo. Denies palpitations or known irregular heart beat. PCP Dr Valdez, but > 1yr since last OV. 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 (via PFO that was prev undiagnosed per ) - Surgical History Additional surgical history: L hip replacement, PFO repair - Social History Smoking Status: Never smoked Alcohol Use: Rarely Drug Use: None Additional social history: lives with Mily Review of Systems Review of Systems: ROS: 10pt was reviewed & negative except for what was stated in HPI & below Physical Exam Physical Exam: Temp Pulse Resp BP Pulse Ox 97.7 F 99 18 118/86 H 94 02/15/17 16:00 02/15/17 16:00 02/15/17 16:00 02/15/17 16:00 02/15/17 16:00 O2 (L/minute) 3 Constitutional: no apparent distress, appears nourished, uncomfortable (wih movements) Eyes: anicteric sclera, EOMI Ears, Nose, Mouth, Throat: moist mucous membranes, hearing normal Cardiovascular: regular rate and rhythym, other (PVCs noted), No JVD Respiratory: no respiratory distress, no rales or rhonchi, clear to auscultation Gastrointestinal: normoactive bowel sounds, soft, non-tender abdomen, no palpable masses, No guarding, No rebound, No distension Skin: warm, other (several superficial skin tears noted, wound care already assessed and dressing placed) Neurologic: AAOx3, sensation intact bilaterally, CN II-XII Intact, No weakness, No numbness, No facial droop Psychiatric: interacting appropriately, not anxious, not encephalopathic Lab Data & Imaging Review 02/15/17 10:15 02/15/17 10:15 WBC 5.77 10^3/uL (3.80-9.50) 02/15/17 10:15 RBC 5.71 10^6/uL (4.40-6.38) 02/15/17 10:15 Hgb 18.3 g/dL (13.7-17.5) H 02/15/17 10:15 Hct 52.7 % (40.0-51.0) H 02/15/17 10:15 MCV 92.3 fL (81.5-99.8) 02/15/17 10:15 MCH 32.0 pg (27.9-34.1) 02/15/17 10:15 MCHC 34.7 g/dL (32.4-36.7) 02/15/17 10:15 RDW 14.4 % (11.5-15.2) 02/15/17 10:15 Plt Count 101 10^3/uL (150-400) L 02/15/17 10:15 MPV 9.8 fL (8.7-11.7) 02/15/17 10:15 Neut % (Auto) 70.3 % (39.3-74.2) 02/15/17 10:15 Lymph % (Auto) 12.3 % (15.0-45.0) L 02/15/17 10:15 [place] % (Auto) 14.0 % (4.5-13.0) H 02/15/17 10:15 Eos % (Auto) 2.3 % (0.6-7.6) 02/15/17 10:15 Baso % (Auto) 0.2 % (0.3-1.7) L 02/15/17 10:15 Nucleat RBC Rel Count 0.0 % (0.0-0.2) 02/15/17 10:15 Absolute Neuts (auto) 4.06 10^3/uL (1.70-6.50) 02/15/17 10:15 Absolute Lymphs (auto) 0.71 10^3/uL (1.00-3.00) L 02/15/17 10:15 Absolute Monos (auto) 0.81 10^3/uL (0.30-0.80) H 02/15/17 10:15 Absolute Eos (auto) 0.13 10^3/uL (0.03-0.40) 02/15/17 10:15 Absolute Basos (auto) 0.01 10^3/uL (0.02-0.10) L 02/15/17 10:15 Absolute Nucleated RBC 0.00 10^3/uL (0-0.01) 02/15/17 10:15 Immature Gran % 0.9 % (0.0-1.1) 02/15/17 10:15 Immature Gran # 0.05 10^3/uL (0.00-0.10) 02/15/17 10:15 Sodium 139 mEq/L (134-144) 02/15/17 10:15 Potassium 4.5 mEq/L (3.5-5.2) 02/15/17 10:15 Chloride 104 mEq/L (97-110) 02/15/17 10:15 Carbon Dioxide 24 mEq/l (22-31) 02/15/17 10:15 Anion Gap 11 mEq/L (8-16) 02/15/17 10:15 BUN 23 mg/dL (7-23) 02/15/17 10:15 Creatinine 1.7 mg/dL (0.7-1.3) H 02/15/17 10:15 Estimated GFR 39 02/15/17 10:15 Glucose 110 mg/dL (70-100) H 02/15/17 10:15 Calcium 9.4 mg/dL (8.5-10.4) 02/15/17 10:15 Urine Color YELLOW 02/15/17 12:05 Urine Appearance CLEAR 02/15/17 12:05 Urine pH 5.0 (5.0-7.5) 02/15/17 12:05 Ur Specific [place] 1.015 (1.002-1.030) 02/15/17 12:05 Urine Protein 2+ (NEGATIVE) H 02/15/17 12:05 Urine Ketones NEGATIVE (NEGATIVE) 02/15/17 12:05 Urine Blood 2+ (NEGATIVE) H 02/15/17 12:05 Urine Nitrate NEGATIVE (NEGATIVE) 02/15/17 12:05 Urine Bilirubin NEGATIVE (NEGATIVE) 02/15/17 12:05 Urine Urobilinogen NEGATIVE EU (0.2-1.0) 02/15/17 12:05 Ur Leukocyte Esterase NEGATIVE (NEGATIVE) 02/15/17 12:05 Urine RBC 25-50 /hpf (0-3) H 02/15/17 12:05 Urine WBC 1-3 /hpf (0-3) 02/15/17 12:05 Ur Epithelial Cells NONE SEEN /lpf (NONE-1+) 02/15/17 12:05 Urine Mucus 1+ /lpf (NONE-1+) 02/15/17 12:05 Urine Glucose NEGATIVE (NEGATIVE) 02/15/17 12:05 Imaging Review: revwd CT back with him/ Assessment & Plan Assessment: 1. Acute renal insufficiency -gentle IV hydration, avoid nephrotoxins -re-eval in AM 2. Presumed UTI -cx sent -rocephin started (confirmed no allergy to cephalo) 3. Compression fracture of L1 lumbar vertebra (Acute)/T12 vertebral fracture ( Acute) -PT/OT eval in AM -consider kyphoplasty per radiology -consider SNF 4. Dizziness -check TSH and EKG -no indication for brain imaging at this point -watch BPs closely -PTOT eval for stability DNR confirmed, discussed MOST forms/AD/LW DISPO- likely > 2 mdts for pain management, IVF/IV abx PCP Dr Valdez
--- NOTE | 2017-02-15 19:14 | CPEKG ---
Heart Rate: 92 RR Interval: 652 P-R Interval: 188 QRSD Interval: 88 QT Interval: 368 QTC Interval: 456 P Joanna: -26 QRS Joanna: 53 T Wave Joanna: -10 EKG Severity - BORDERLINE ECG - EKG Impression: BORDERLINE T ABNORMALITIES, INFERIOR LEADS EKG Impression: SINUS RHYTHM WITH SINUS ARRHYTHMIA Electronically Signed By: Taj Mishra 17-Feb-2017 14:07:10
[2017-02-16 04:57] LABS: % IMMATURE GRANULYOCYTES 0.3 % (0.0-1.1); ABSOLUTE IMMATURE GRANULOCYTES 0.02 10^3/uL (0.00-0.10); ADD DIFF? NO; ADD MORPH? NO; ADD SCAN? NO; ATYPICAL LYMPHOCYTE FLAG 10 (0-99); FRAGMENT RBC FLAG 0 (0-99); HEMATOCRIT 47.9 % (40.0-51.0); HEMOGLOBIN 16.7 g/dL (13.7-17.5); LEFT SHIFT FLG 0 (0-99); LIPEMIA HEMOLYSIS FLAG 90 (0-99); MEAN CELL HEMOGLOBIN 31.9 pg (27.9-34.1); MEAN CELL HEMOGLOBIN CONCENTR. 34.9 g/dL (32.4-36.7); MEAN CELL VOLUME 91.6 fL (81.5-99.8); MEAN PLATELET VOLUME 9.8 fL (8.7-11.7); PLATELET CLUMPS FLAG 0 (0-99); PLATELET COUNT 108 10^3/uL (150-400); RED BLOOD CELL COUNT 5.23 10^6/uL (4.40-6.38); RED CELL DISTRIBUTION WIDTH 14.2 % (11.5-15.2)
[2017-02-16 05:09] LABS: ANION GAP 10 mEq/L (8-16); CALCIUM 8.4 mg/dL (8.5-10.4); CARBON DIOXIDE 20 mEq/l (22-31); CHLORIDE 111 mEq/L (97-110); CREATININE 1.7 mg/dL (0.7-1.3); GLOMERULAR FILTRATION RATE 39; GLUCOSE 113 mg/dL (70-100); POTASSIUM 4.4 mEq/L (3.5-5.2); SODIUM 141 mEq/L (134-144)
[2017-02-16] MEDS: ENOXAPARIN 30 MG/0.3 ML SYR SC SCH (09:00)
--- NOTE | 2017-02-16 11:04 | PDMN ---
Medical Necessity Medical necessity: est los >2 mn for acute renal insufficiency, UTI, compression fxs s/p fall, & dizziness, for IVF, IV abx & pain management; comorbid htn, hx cva; per H&P & order 02/15/17
--- NOTE | 2017-02-16 12:40 | HOSPPROG ---
Hospitalist Progress Note Assessment/Plan: # fall/dizziness - consider cardiac/neuro etilogies; has 5cm arachnoid cyst - tele monitoring, echo, neuro eval - check CTH, ankle XR # L leg weakness - check MRI L-spine and low T-spine # T12/L1 compression fx - pain better today, does not seem appropriate for kypho # ankle pain/swelling - check XR # BERNARDINO on CKD - baseline SCr 1.3/1.4 - check urine studies # ?UTI - UA not c/w UTI; no UCx sent - check pct, stop abx unless pct elevated # L arachnoid cyst - neuro eval # hx embolic CVA - embolic s/p PFO repair # htn # hld # DNR # lovenox ppx Subjective: denies back pain; has L leg weakness; L ankle pain Objective: Vital Signs Temp Pulse Resp BP Pulse Ox 36.5 C 86 16 165/87 H 91 L 02/16/17 11:43 02/16/17 11:43 02/16/17 08:00 02/16/17 11:43 02/16/17 11:43 Laboratory Results 02/16/17 04:35 02/16/17 04:35 02/15/17 02/16/17 02/17/17 05:59 05:59 05:59 Intake Total 360 Balance [address] reviewed - Physical Exam Constitutional: no apparent distress, appears nourished Ears, Nose, Mouth, Throat: moist mucous membranes Cardiovascular: regular rate and rhythym, systolic murmur, No diastolic murmur, No JVD Respiratory: no respiratory distress, no rales or rhonchi, clear to auscultation Gastrointestinal: normoactive bowel sounds, soft, non-tender abdomen, no palpable masses Musculoskeletal: other (L ankle edema, pain) Neurologic: other ([place]; L leg weakness; sensation intact bilat) ICD10 Worksheet Patient Problems: Problems Problem Status Onset Compression fracture of L1 lumbar vertebra Acute T12 vertebral fracture Acute Encephalopathy Acute Sepsis secondary to UTI Acute Stroke of unknown etiology Acute Weakness Acute
--- NOTE | 2017-02-16 15:35 | ASMTCMCOM ---
SANDER Note CM Note Notes: Dc needs unclear, PT to S[facility] biswas w/f Date Signed: 02/16/2017 03:34 PM Electronically Signed By:Sulema Subramanian RN
--- NOTE | 2017-02-16 17:55 | ECHO ---
[email or web address] [address] [address] Main: [phone] Fax: Transthoracic Echocardiogram Name: SUSSY MARISCAL MR#: [id number] Study Date: 02/16/2017 Study Time: 02:23 PM Date of : 1935 Age: 81 year(s) Height: 162.6 cm (64 in.) Weight: 81.65 kg (180 lb.) BSA: 1.87 m2 Gender: Male Examination: Echo Indication: dizziness; fall Image Quality: Technically Difficult Contrast: Requested by: Tobias Dillon BP: 165 mmHg/86 mmHg Heart Rate: 94 bpm Rhythm: Indication: dizziness; fall Procedure Staff Case Finisher: Radha Eid Reading Physician: Sarina Devries Requesting Provider: Conclusions: The left ventricle cavity is small. Normal global systolic LV function. EF is 72 %. No obvious regional wall motion abnormalities . Normal size right ventricle. Dyskinetic RV systolic function. Grossly normal left atrial size. Known Amplatz device which is not well visualized. . Mild calcific aortic valve stenosis. Compared with 08/24/2016 overall similar findings Measurements: Chambers Valvular Assessment AV/MV Valvular Assessment TV/PV Normal Normal Normal Name Value Range Name Value Range Name Value Range Ao Ping (MM): 3.4 cm (2.2 cm-3.7 AV Vmax: 2.40 m/s (1 m/s-1.7 PV Vmax: 0.69 m/s (0.6 m/s-0.9 cm) m/s) m/s) LVOTd 2.2 cm 2.2 cm mm AV maxP mmHg ( - ) PV PGmax: 2 mmHg ( - ) LVEF (MOD4): 72 % (>=55 %) AV meanP mmHg ( - ) RVDd(2D): 2.8 cm (1.9 cm-3.8 LVOT Vmax: 1.16 m/s (0.7 m/s-1.1 cmmm) m/s) KOKI (Vmax): 1.8 cm2 ( - ) KOKI (VTI): 2.0 cm ( - ) MV E Vmax: 0.66 m/s ( - ) MV A Vmax: 1.06 m/s ( - ) MV E/A: 0.62 ( - ) Continued Measurements: Chambers Valvular Assessment AV/MV Patient: SUSSY MARISCAL Study Date: 02/16/2017 Page 1 of 2 02:23 PM Name Value Name Value TAPSE: 1.9 cm MV DecTime: 230 m/s MV E/E' Lateral: 6.90 Additional Vessels Name Value Ao Ascendin.7 cm Findings: Left Ventricle: The left ventricle cavity is small. Normal global systolic LV function. EF is 72 %. No obvious regional wall motion abnormalities . Right Ventricle: Normal size right ventricle. Dyskinetic RV systolic function. Left Atrium: Atrial septum is not visualized. Grossly normal left atrial size. Known Amplatz device which is not well visualized. . Right Atrium: Grossly normal right atrial size.. Mitral Valve: The mitral valve is normal in appearance. There is no mitral valve regurgitation. Aortic Valve: Moderate aortic cusp calcification is present. There is no aortic valve regurgitation. Mild calcific aortic valve stenosis. 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 Tricuspid Valve: Tricuspid valve not visualized. There is no tricuspid valve regurgitation. Pulmonary artery pressure is not obtained due to inadequate TR jet. Aorta: Normal size aortic root measuring 3.4 cm. Normal size ascending aorta measuring 2.7 cm. Pericardium: No pericardial effusion. (No Signature Object) Patient: SUSSY MARISCAL Study Date: 02/16/2017 Page 2 of 2 02:23 PM [id number]
--- NOTE | 2017-02-16 20:13 | GCON ---
[f rep st] CONSULTATION NEUROSURGICAL CONSULTATION DATE OF CONSULTATION: 02/16/2017 REASON FOR CONSULTATION: Lumbar spinal stenosis and lumbar fracture. HISTORY OF PRESENT ILLNESS: The patient is an 81-year-old, who was brought to the emergency room yes terday after falling in the shower a few days prior to admission. He apparently got dizzy. She trie d to catch him but he slumped down and landed on his buttocks. He had no loss of consciousness, but he was having back pain since that time. He wanted to wait a few days to see if it would go away on i ts own but it did not, so she brought him to the emergency room. He was admitted. He was having dif ficulty ambulating because of the pain. He was given pain medications, admitted to the hospital and really complained predominantly of pain in the lower back and was not having really radiating pain in the leg but was noted today to have difficulty with moving the left ankle and tenderness in the ankl e and apparently some x-rays were performed. Neurosurgery was consulted because an MRI was done. Th e CT scan demonstrated evidence of probable L1 fracture, that may be new. And an MRI was done demons trating an acute L1 compression fracture, an old L2 compression fracture. The CT scan also demonstra margaret what may be a small fracture through the inferior articulating process of T12, and Neurosurgery w as asked opine. PAST MEDICAL HISTORY: Is significant for hypertension, hyperlipidemia, history of an embolic CVA aft er his hip surgery through a patent foramen ovale. He did undergo surgical repair of the patent fora men ovale. He has had a left hip replacement. MEDICATIONS: Include acetaminophen. SOCIAL HISTORY: He is . He has never smoked. He very rarely uses alcohol. He lives with hi s , Mily. REVIEW OF SYSTEMS: The notes that he has had increasing difficulty with ambulation and notes mo re of an apraxia rather than a leg weakness. She says that he has trouble determining when to step u p onto a curve or not and says that she can tell that there is a lot of thought and "gears are turnin g" as he approaches these kinds of objects. He has had more falls recently and she is concerned by t his as well. She had questions about his worsening dizziness and this too seems to be plaguing him i n his ability to walk. PHYSICAL EXAM: VITAL SIGNS: His blood pressure is 122/84, MAP is 96, respiratory rate was 18, satur ation 93% on 2.5 L nasal cannula. His temperature is 36.9. GENERAL: He is an elderly male lying [place] pine in a hospital bed, and he does lie quite still. Any movement does cause pain in the lower back. We did not roll him to palpate the back however. He has reasonable strength throughout both arms a lthough he is frail. His deltoids, biceps, triceps, wrist extensors, and recycling assistant are all 5/5, but again he is frail and easily overcome. He is able to lift both legs completely off the bed at the ileus p soas. He does not move the left ankle. There is swelling of the left ankle and tenderness. He was able to wiggle his toes but there is not great strength in the foot. He does not like any motion, ei ther plantar flexion or dorsiflexion of the left ankle, and the right foot is strong 5/5 throughout. He has sensation present throughout the left leg. DIAGNOSTIC REVIEW: MRI of the spine does demonstrate severe spinal stenosis at L4-5 and moderately s evere spinal stenosis at L5-S1. The stenosis at L4-5 is worse on the right at L4-5 than on the left. There is evidence of a new acute fracture with minimal compression deformity of the L1 vertebral moody dy, and there was an old compression deformity of L2. I saw no evidence of acute fracture of T12. C T scan of the brain was reviewed and it does demonstrate a large left anterior temporal arachnoid cys t. This is unchanged since June 2016. 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 No evidence of acute injury. ASSESSMENT: The patient is an 81-year-old, who is quite frail and has a new acute L1 compression def ormity that in my view, does not require kyphoplasty; although this is not an unknown reasonable pranav tment option and could be pursued if the family desired it. We generally would reserve kyphoplasty f or those who failed a period of medical bracing, but if the family desired to have kyphoplasty this c ertainly could be set up and done. There is a severe spinal stenosis noted at L4-5 and L5-S1 and thi s could cause radiating leg pain. It could even cause some weakness of the foot dorsiflexors or the extensor hallucis longus, but he has really remarkable tenderness of the left ankle. An x-ray of the left ankle was performed and demonstrated no fracture, but soft tissue swelling was noted on the x-r ay and indeed, this is consistent with my physical exam. I do not have an explanation for isolated l eft ankle pain and it may be reasonable to get an opinion from orthopedics in this regard. An MRI na turally may be more useful. The family had a number of questions concerning his cognitive status as well as his prior stroke, as well as his ongoing dizziness and his difficulty with ambulation. I dir ected them and their questions to the Neurology service as we were told that Neurology has been consu lted on this case and I think that it would be reasonable for them to opine in this regard. There is no reason to consider treatment for the distal carotid aneurysm or the left temporal arachnoid cyst. We will order a lumbar corset to help brace the lumbar spine and I think this might be better manjinder ated than a simple [place] brace; although both would be reasonable, and we will see him shin goodman tomorrow. /[id number]/MODL
[2017-02-17 06:03] LABS: % IMMATURE GRANULYOCYTES 0.4 % (0.0-1.1); ABSOLUTE IMMATURE GRANULOCYTES 0.03 10^3/uL (0.00-0.10); ADD DIFF? NO; ADD MORPH? NO; ADD SCAN? NO; ATYPICAL LYMPHOCYTE FLAG 0 (0-99); FRAGMENT RBC FLAG 0 (0-99); HEMATOCRIT 46.4 % (40.0-51.0); HEMOGLOBIN 15.7 g/dL (13.7-17.5); LEFT SHIFT FLG 0 (0-99); LIPEMIA HEMOLYSIS FLAG 90 (0-99); MEAN CELL HEMOGLOBIN 31.3 pg (27.9-34.1); MEAN CELL HEMOGLOBIN CONCENTR. 33.8 g/dL (32.4-36.7); MEAN CELL VOLUME 92.4 fL (81.5-99.8); MEAN PLATELET VOLUME 9.4 fL (8.7-11.7); PLATELET CLUMPS FLAG 0 (0-99); PLATELET COUNT 105 10^3/uL (150-400); RED BLOOD CELL COUNT 5.02 10^6/uL (4.40-6.38)
[2017-02-17 06:15] LABS: ALANINE AMINOTRANSFERASE 23 IU/L (21-72); ALBUMIN 2.6 g/dL (3.5-5.0); ALKALINE PHOSPHATASE 68 IU/L (38-126); ANION GAP 10 mEq/L (8-16); ASPARTATE AMINOTRANSFERASE 14 IU/L (17-59); BILIRUBIN,TOTAL 1.8 mg/dL (0.1-1.4); CALCIUM 8.3 mg/dL (8.5-10.4); CARBON DIOXIDE 20 mEq/l (22-31); CHLORIDE 109 mEq/L (97-110); CREATININE 1.8 mg/dL (0.7-1.3); GLOMERULAR FILTRATION RATE 36; GLUCOSE 109 mg/dL (70-100); POTASSIUM 4.2 mEq/L (3.5-5.2); SODIUM 139 mEq/L (134-144); TOTAL PROTEIN 5.1 g/dL (6.3-8.2)
[2017-02-17] MEDS: ENOXAPARIN 30 MG/0.3 ML SYR SC SCH (08:25)
--- NOTE | 2017-02-17 09:40 | NEUROPROG ---
Assessment: HOSPITAL NEUROLOGY CONSULT REQUESTING: Tobias Dillon MD REASON: dizzy, fall HPI: 81 year old man with dementia, prior multifocal embolic ischemic stroke, HTN, HLD, left hip replacement with revision who presented to our ED yesterday due to a fall in the shower. Patient is not sure of the reason for his admission, no family at bedside, so history is obtained from records review. Patient was apparently showering and notified his he felt dizzy. Unsure of the specifics of his dizzy sensation (vertigo, presyncope, etc...), but he slumped and fell on his buttocks. He noted severe pain in the low back thereafter, which inspired transport to our ED. Imaging of the lumbar spine revealed acute L1 compression fracture and severe central canal stenosis L4-5 with moderate central canal stenosis in the adjacent levels. He was also found to have multiple abrasions and multiple areas of tenderness in the extremities. It appeared his LLE was weak, specifically with ankle dorsiflexion. 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 Cardiac workup is underway through the primary team, with a TTE showing no mass/thrombus and preserved EF. Today, the patient denies any weakness, sensory loss, dizziness, lightheadedness , vision changes, speech/language problems. He is very tender to touch in the extremities. On review of prior records, he has notable cognitive impairment. He also had a multifocal embolic ischemic stroke in 2013 after left hip hardware revision, thought to be from paradoxical embolization with PFO and LE DVT post-op. He presented with cognitive changes, visual disturbance and left hemiparesis. Unknown what his baseline functional status is, but he tells me he uses a cane or walker at home. ROS: As per the HPI, otherwise a complete 12 point ROS was performed and is negative ALLERGIES AND MEDS: As recorded in the EMR - reviewed and reconciled PFSH: As per the intake H&P by Dr. Smith from 02/15/17. EXAM: VS reviewed in EMR GEN: frail elderly man laying in NAD HEENT: NCAT, sclera anicteric, conjunctiva not injected, MMM, oropharynx clear, no scalp tenderness NECK: supple, nontender, no meningismus CV: RRR s1 s2 wo m/r/c/g. Carotid pulses 2+ wo bruit NEURO: MS: awake, somewhat inattentive, oriented to self, place, but not date or situation. Speech nondysarthric. No language disturbance. Follows commands. Attends to both sides. Episodic/recent memory impairment evident on casual conversation. Mood euthymic. Adequate fund of knowledge. CN: pupils 3mm round and reactive. Unable to visualize fundi. Does not participate in formal VF testing, but blinks to threat OU. Primary gaze centered. Full horizontal motility with saccadic intrusions on smooth pursuit, restricted vertical gaze. Facial sensation preserved. Face symmetric. Hearing grossly intact to finger rub. Palatoglossal movements intact. Shoulder shrug and head turn strong. MOTOR: some reduced muscle bulk throughout. Some cogwheeling in the UEs. He can sustain antigravity in all extremities, but has a lot of tenderness in all extremities so does not participate in formal segmental motor exam. He does appear to have weak dorsiflexion in the LLE, but he has a lot of pain moving the ankle. SENSORY: intact LT/PP throughout and symmetric. No extinction. COORD: no gross ataxia - does not participate in formal FN/HS. Jonathan bradykinetic. REFLEX: plantars equivocal. No clonus. Absent ankle jerks, other DTRS 2/4. GAIT: deferred to PT safety eval DATA REVIEW: Labs reviewed in EMR PERSONALLY INTERPRETED RESULTS AND DATA: MRI L-spine and CT head wo per HPI IMPRESSION AND RECOMMENDATIONS: // FALL // DIZZINESS // ? LLE WEAKNESS VS. PAIN PHENOMENON // INCIDENTAL LEFT MIDDLE CRANIAL FOSSA ARACHNOID CYST // INCIDENTAL LICA TERMINUS ANEURYSM // VERTEBRAL COMPRESSION FRACTURE Patient with reported dizziness and fall. Unsure what dizziness may represent, as patient does not recall the events leading to admission. Will screen for possible posterior circulation ischemia with MRI brain wo and MR angio head/neck wo (no contrast as GFR is borderline at 36). LLE weakness may be giveway from pain, or possibly recrudescence of his old left hemiparesis from prior stroke. MRI will be able to address the possibility of new stroke. Incidental CT findings are stable from prior reports - agree with neurosurgery that there is no need to intervene on these findings. Vertebral compression fractures being managed by neurosurgery. Further fall/dizziness workup, including cardiac screening, per primary team. Objective: Vital Signs Temp Pulse Resp BP Pulse Ox 36.8 C 100 20 137/91 H 96 02/17/17 08:00 02/17/17 08:00 02/17/17 08:00 02/17/17 08:00 02/17/17 08:00 Laboratory Results 02/17/17 05:46 02/17/17 05:46 02/16/17 02/17/17 02/18/17 05:59 05:59 05:59 Intake Total 360 1600 Balance 360 1600 Allergies/Adverse Reactions: Penicillins Allergy (Verified 06/10/16 11:31)
[2017-02-17] MEDS: HYDROCODONE/APAP 5/325 TAB PO PRN ×2 (10:19→23:05)
--- NOTE | 2017-02-17 12:00 | HOSPPROG ---
Hospitalist Progress Note Assessment/Plan: # fall/dizziness - consider cardiac/neuro etiologies; has 5cm arachnoid cyst - cont tele monitoring, echo without clear explanation - MRI brain and MR angio head and neck # L4/5 severe stenosis - per nsg, may cause some leg weakness # T12/L1 compression fx - pain better today, brace vs kypho per nsg # ankle pain/swelling - suspect strain sustained during his fall # BERNARDINO on CKD - baseline SCr 1.3/1.4 - FENa appears pre-renal - cont IVF # mild hematuria - no evidence for UTI; abx stopped # L arachnoid cyst - no intervention per nsg and neuro # hx embolic CVA - embolic s/p PFO repair - repeat MRI today # htn # hld # DNR # lovenox ppx Subjective: dizziness is ongoing Objective: Vital Signs Temp Pulse Resp BP Pulse Ox 36.6 C 102 H 18 113/78 92 02/17/17 11:28 02/17/17 11:28 02/17/17 11:28 02/17/17 11:28 02/17/17 11:28 Laboratory Results 02/17/17 05:46 02/17/17 05:46 02/16/17 02/17/17 02/18/17 05:59 05:59 05:59 Intake Total 360 1600 Balance [address] Henderson's note reviewed Dr Zavala's note reviewed - Physical Exam Constitutional: no apparent distress, appears nourished Cardiovascular: regular rate and rhythym, no murmur, rub, or gallop Respiratory: no respiratory distress, no rales or rhonchi, clear to auscultation Gastrointestinal: normoactive bowel sounds, soft, non-tender abdomen, no palpable masses ICD10 Worksheet Patient Problems: Problems Problem Status Onset Stroke of unknown etiology Acute Encephalopathy Acute Weakness Acute Sepsis secondary to UTI Acute T12 vertebral fracture Acute Compression fracture of L1 lumbar vertebra Acute
--- NOTE | 2017-02-17 12:08 | NEUSURGPN ---
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 P: -MRI lumbar shows L4/5 stenosis but left ankle pain should not be coming from this and he is otherwise asymptomatic to this and neuro intact -L1 compression fracture appears chronic but has pain in this area and will get Lumbar corset brace for support as he is unlikely to tolerate Jewitt brace. Will wear brace when he is up and out of bed -Standing x-rays in brace once brace arrives -Neurology consulted as well to workup other causes for falling -Left ankle with swelling and pain but x-rays negative for fracture. Suspect ligamentous injury and ortho consult may be useful to look at this -MRI C- spine could be considered for workup on falls but does not have any signs of myelopathy at this time -Discussed with Dr. Zavala - Physician Discussed Patient with : [facility] Physical Exam - Vitals, I&O, Labs I and O 02/16/17 02/17/17 02/18/17 05:59 05:59 05:59 Intake Total 360 1600 Balance 360 1600 Weight 81.647 kg Intake: Oral (ml) 360 1100 IV Infused (ml) 500 Ns 1,000 ml @ 100 mls/hr 500 IV CONT JOHANNY Rx#: [id number] Other: Number of Voids Diapers/Briefs 2 3 Incontinence 1 Number of Emesis 1 Occurrences Vital Signs Temp Pulse Resp BP Pulse Ox 36.6 C 102 H 18 113/78 92 02/17/17 11:28 02/17/17 11:28 02/17/17 11:28 02/17/17 11:28 02/17/17 11:28 Laboratory Results 02/17/17 05:46 02/17/17 05:46 ICD10 Worksheet Patient Problems: Problems Problem Status Onset Compression fracture of L1 lumbar vertebra Acute T12 vertebral fracture Acute Encephalopathy Acute Sepsis secondary to UTI Acute Stroke of unknown etiology Acute Weakness Acute
[2017-02-17] MEDS: NS 1,000 ML IV SCH ×2 (13:31→23:04)
[2017-02-17] MEDS ORDERED: FLU VACC QS 2017-18 (3YR+)/PF 0.5 ML SYR (FLUARIX QUAD) IM ONE (17:00)
--- NOTE | 2017-02-18 08:02 | NEUSURGPN ---
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 P: -MRI lumbar shows L4/5 stenosis but left ankle pain should not be coming from this and he is otherwise asymptomatic to this and neuro intact -L1 compression fracture appears chronic but has pain in this area and will get Lumbar corset brace for support as he is unlikely to tolerate Jewitt brace. Will wear brace when he is up and out of bed -Upright Lumbarx-rays in brace -Neurology consulted as well to workup other causes for falling -Left ankle with swelling and pain but x-rays negative for fracture. Suspect ligamentous injury vs other pathology (gout?) and ortho consult may be useful to look at this -MRI C- spine could be considered for workup on falls but does not have any signs of myelopathy at this time -Discussed with Dr. Zavala -If xrays okay, will s/o for the weekend. Patient will need follow up in 4weeks with xrays of the lumbar spine. Please notify NS with any change in neuro/ motor exam. Subjective: Back pain improved. Primary source of pain is left ankle. Objective: NAD A&Ox3 MAEx4 5/5 and equal in BUE and BLE. Except left ankle, stating it is too painful to move. left ankle TTP, moderate swelling and warm to touch - Physician Discussed Patient with : [facility] Physical Exam - Vitals, I&O, Labs I and O 02/17/17 02/18/17 02/19/17 05:59 05:59 05:59 Intake Total 1700 2219 Balance 1700 2219 Intake: Oral (ml) 1200 550 IV Infused (ml) 500 1669 Ns 1,000 ml @ 100 mls/hr 500 IV CONT JOHANNY Rx#: [id number] Ns 1,000 ml @ 100 mls/hr 1669 IV CONT JOHANNY Rx#: [id number] Other: Number of Voids Diapers/Briefs 1 3 Number of Stools Diapers/Briefs 0 Number of Emesis 1 Occurrences Vital Signs Temp Pulse Resp BP Pulse Ox 36.9 C 82 18 149/93 H 93 02/18/17 07:40 02/18/17 07:40 02/18/17 07:40 02/18/17 07:40 02/18/17 07:40 Laboratory Results 02/17/17 05:46 02/17/17 05:46 ICD10 Worksheet Patient Problems: Problems Problem Status Onset Compression fracture of L1 lumbar vertebra Acute T12 vertebral fracture Acute Encephalopathy Acute Sepsis secondary to UTI Acute Stroke of unknown etiology Acute Weakness Acute
[2017-02-18 09:12] LABS: % IMMATURE GRANULYOCYTES 0.4 % (0.0-1.1); ABSOLUTE IMMATURE GRANULOCYTES 0.03 10^3/uL (0.00-0.10); ADD DIFF? NO; ADD MORPH? NO; ADD SCAN? NO; ATYPICAL LYMPHOCYTE FLAG 10 (0-99); FRAGMENT RBC FLAG 0 (0-99); HEMATOCRIT 43.9 % (40.0-51.0); HEMOGLOBIN 15.2 g/dL (13.7-17.5); LEFT SHIFT FLG 0 (0-99); LIPEMIA HEMOLYSIS FLAG 90 (0-99); MEAN CELL HEMOGLOBIN 32.4 pg (27.9-34.1); MEAN CELL HEMOGLOBIN CONCENTR. 34.6 g/dL (32.4-36.7); MEAN CELL VOLUME 93.6 fL (81.5-99.8); MEAN PLATELET VOLUME 9.5 fL (8.7-11.7); PLATELET CLUMPS FLAG 0 (0-99); PLATELET COUNT 108 10^3/uL (150-400); RED BLOOD CELL COUNT 4.69 10^6/uL (4.40-6.38); RED CELL DISTRIBUTION WIDTH 13.8 % (11.5-15.2)
[2017-02-18] MEDS: ENOXAPARIN 30 MG/0.3 ML SYR SC SCH (09:14)
[2017-02-18 09:55] LABS: CALCIUM 8.2 mg/dL (8.5-10.4); CARBON DIOXIDE 20 mEq/l (22-31); CHLORIDE 107 mEq/L (97-110); CREATININE 1.5 mg/dL (0.7-1.3); GLOMERULAR FILTRATION RATE 45; GLUCOSE 97 mg/dL (70-100); POTASSIUM 4.6 mEq/L (3.5-5.2)
--- NOTE | 2017-02-18 10:13 | NEUROPROG ---
Assessment: BACKGROUND: Consult 02/17 81 year old man with dementia, prior multifocal embolic ischemic stroke, HTN, HLD, left hip replacement with revision who presented to our ED 02/16 due to a fall in the shower. Patient is not sure of the reason for his admission, no family at bedside, so history is obtained from records review. Patient was apparently showering and notified his he felt dizzy. Unsure of the specifics of his dizzy sensation (vertigo, presyncope, etc...), but he slumped and fell on his buttocks. He noted severe pain in the low back thereafter, which inspired transport to our ED. Imaging of the lumbar spine revealed acute L1 compression fracture and severe central canal stenosis L4-5 with moderate central canal stenosis in the adjacent levels. He was also found to have multiple abrasions and multiple areas of tenderness in the extremities. It appeared his LLE was weak, specifically with ankle dorsiflexion. 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 Cardiac workup is underway through the primary team, with a TTE showing no mass/thrombus and preserved EF. Today, the patient denies any weakness, sensory loss, dizziness, lightheadedness , vision changes, speech/language problems. He is very tender to touch in the extremities. On review of prior records, he has notable cognitive impairment. He also had a multifocal embolic ischemic stroke in 2012 after left hip hardware revision, thought to be from paradoxical embolization with PFO and LE DVT post-op. He presented with cognitive changes, visual disturbance and left hemiparesis. Unknown what his baseline functional status is, but he tells me he uses a cane or walker at home. INTERVAL HISTORY: Still confused as to why he was admitted. Still with tenderness throughout the extremities. EXAM: VS reviewed in EMR GEN: frail elderly man laying in NAD MS: awake, somewhat inattentive, oriented to self, place, but not date or situation. Speech nondysarthric. No language disturbance. Follows commands. Attends to both sides. Episodic/recent memory impairment evident on casual conversation. Mood euthymic. Adequate fund of knowledge. CN: pupils 3mm round and reactive. Does not participate in formal VF testing, but blinks to threat OU. Primary gaze centered. Full horizontal motility with saccadic intrusions on smooth pursuit, restricted vertical gaze. Facial sensation preserved. Face symmetric. Hearing grossly intact to finger rub. Palatoglossal movements intact. Shoulder shrug and head turn strong. MOTOR: some reduced muscle bulk throughout. He can sustain antigravity in all extremities, but has a lot of tenderness in all extremities so does not participate in formal segmental motor exam. He does appear to have weak dorsiflexion in the LLE, but he has a lot of pain moving the ankle. SENSORY: intact LT/PP throughout and symmetric. No extinction. COORD: no gross ataxia - does not participate in formal FN/HS. REFLEX: plantars equivocal. No clonus. Absent ankle jerks, other DTRS 2/4. GAIT: deferred to PT safety eval DATA REVIEW: Labs reviewed in EMR PERSONALLY INTERPRETED RESULTS AND DATA: MRI L-spine and CT head wo per BACKGROUND MRI brain wo - no acute changes/ischemia MRA head/neck wo - distal ICA occlusion with likely thrombosed aneurysm, poorly visualized anterior circulation due to artifact, posterior circulation patent IMPRESSION AND RECOMMENDATIONS: // FALL // DIZZINESS // ? LLE WEAKNESS VS. PAIN PHENOMENON // INCIDENTAL LEFT MIDDLE CRANIAL FOSSA ARACHNOID CYST // INCIDENTAL LICA TERMINUS ANEURYSM // VERTEBRAL COMPRESSION FRACTURE Patient with reported dizziness and fall. Unsure what dizziness may represent, as patient does not recall the events leading to admission. MRI brain shows no new stroke, and MRI shows patent posterior circulation, so unlikely dizziness was central issue. LLE weakness may be giveway from MSK pain , or possibly recrudescence of his old left hemiparesis from prior stroke or from lumbar spine pathology. Incidental CT findings are stable from prior reports - agree with neurosurgery that there is no need to intervene on these findings. Vertebral compression fractures being managed by neurosurgery. Further fall/dizziness workup, including cardiac screening, per primary team. Will sign off. Recall PRN. 35 mins in direct patient care activities on the floor. Case discussed with Dr. Dillon. Objective: Vital Signs Temp Pulse Resp BP Pulse Ox 36.9 C 82 18 149/93 H 93 02/18/17 07:40 02/18/17 07:40 02/18/17 07:40 02/18/17 07:40 02/18/17 07:40 Laboratory Results 02/18/17 09:02 02/18/17 09:02 02/17/17 02/18/1717 05:59 05:59 05:59 Intake Total 1700 2219 Balance 1700 2216 Allergies/Adverse Reactions: Penicillins Allergy (Verified 06/10/16 11:31)
--- NOTE | 2017-02-18 14:41 | HOSPPROG ---
Hospitalist Progress Note Assessment/Plan: # fall/dizziness - no clear neuro etiology though he has many abnormalities - echo/tele ok - no clear cardiac etiology either - history very difficult given his mental status # L4/5 severe stenosis - per nsg # T12/L1 compression fx - pain better today, trial of brace per nsg # ankle pain/swelling - check MRI # hip pain - check XR # BERNARDINO on CKD - baseline SCr 1.3/1.4 - better today - cont IVF # mild hematuria - no evidence for UTI; abx stopped # L arachnoid cyst - no intervention per nsg and neuro # chronic L ICA occlusion/aneurysm # hx embolic CVA - embolic s/p PFO repair # htn # hld # DNR # lovenox ppx Subjective: history difficult; unclear if has pain in ankle or hip Objective: Vital Signs Temp Pulse Resp BP Pulse Ox 36.8 C 78 16 148/81 H 94 02/18/17 11:13 02/18/17 11:13 02/18/17 11:13 02/18/17 11:13 02/18/17 11:13 Laboratory Results 02/18/17 09:02 02/18/17 09:02 02/17/17 02/18/17 02/19/17 05:59 05:59 05:59 Intake Total 1700 2219 Balance [address] Henderson - Physical Exam Constitutional: unkempt Cardiovascular: regular rate and rhythym, no murmur, rub, or gallop Respiratory: no respiratory distress, no rales or rhonchi, clear to auscultation Gastrointestinal: normoactive bowel sounds, soft, non-tender abdomen, no palpable masses Musculoskeletal: other (L foot edematous) ICD10 Worksheet Patient Problems: Problems Problem Status Onset Stroke of unknown etiology Acute Encephalopathy Acute Weakness Acute Sepsis secondary to UTI Acute T12 vertebral fracture Acute Compression fracture of L1 lumbar vertebra Acute
--- NOTE | 2017-02-18 18:02 | ASMTCMCOM ---
CM Note CM Note Notes: CM still waiting for PT/OT evals, dc needs uncertain. Date Signed: 02/18/2017 06:02 PM Electronically Signed By:Sulema Subramanian RN
[2017-02-18 19:35] LABS: ANION GAP 14 mEq/L (8-16)
[2017-02-18 19:37] LABS: SODIUM 141 mEq/L (134-144)
[2017-02-19] MEDS: HYDROCODONE/APAP 5/325 TAB PO PRN ×3 (04:56→22:13)
[2017-02-19] MEDS: NS 1,000 ML IV SCH ×2 (05:00→15:13)
[2017-02-19] MEDS: ENOXAPARIN 30 MG/0.3 ML SYR SC SCH (09:42)
--- NOTE | 2017-02-19 16:21 | ASMTCMCOM ---
CM Note CM Note Notes: Case Management Note Met w/pt and Mily [phone]. PT and OT recommending SNF rehab. Pt reports recent stay in [facility] in Jun or June 2016. [facility] is first choice today. Discussed other [facility] rehab options. Faxed referrals to [facility] and [facility] at pt request. Case Management to follow and will alert family when accepted at a facility. Date Signed: 02/19/2017 04:20 PM Electronically Signed By:Tara Gilbert RN
--- NOTE | 2017-02-19 16:40 | HOSPPROG ---
Hospitalist Progress Note Assessment/Plan: fall/dizziness - no clear neuro etiology though he has many abnormalities - echo/tele ok - no clear cardiac etiology either (tele interp by me) - history very difficult given his mental status; L4/5 severe stenosis - per nsg T12/L1 compression fx - pain better today, trial of brace per nsg ankle pain/swelling - check MRI small effusion evidence of prior severe ankle sprain concern for gout- will check arthrocentesis to get crystal diagnosis hip pain - check XR BERNARDINO on CKD - baseline SCr 1.3/1.4 - better today now euvolemic can stop ivf mild hematuria - no evidence for UTI; abx stopped L arachnoid cyst - no intervention per nsg and neuro chronic L ICA occlusion/aneurysm hx embolic CVA - embolic s/p PFO repair htn hld DNR lovenox ppx Subjective: c/o L ankle pain Objective: Vital Signs Temp Pulse Resp BP Pulse Ox 36.9 C 96 20 137/82 H 95 02/19/17 15:15 02/19/17 15:15 02/19/17 15:15 02/19/17 15:15 02/19/17 15:15 Laboratory Results 02/18/17 09:02 02/18/17 09:02 02/18/17 02/19/17 02/20/17 05:59 05:59 05:59 Intake Total 2219 400 1100 Balance 2219 400 1100 - Physical Exam Constitutional: no apparent distress, appears nourished Eyes: PERRL, anicteric sclera Ears, Nose, Mouth, Throat: moist mucous membranes, hearing normal Cardiovascular: regular rate and rhythym, no murmur, rub, or gallop, No tachycardia Respiratory: no respiratory distress, no rales or rhonchi Gastrointestinal: normoactive bowel sounds, soft, non-tender abdomen Genitourinary: no bladder fullness, No hyatt in urethra Skin: warm, normal color Musculoskeletal: other (L ankle w effusion. pain w passive movement. moderate warmth) Neurologic: AAOx3, sensation intact bilaterally Psychiatric: interacting appropriately, not anxious Lymph, Heme, Immunologic: no cervical LAD ICD10 Worksheet Patient Problems: Problems Problem Status Onset Compression fracture of L1 lumbar vertebra Acute T12 vertebral fracture Acute Encephalopathy Acute Sepsis secondary to UTI Acute Stroke of unknown etiology Acute Weakness Acute
[2017-02-19] MEDS: COLCHICINE 0.6 MG CAP/TAB PO SCH (16:51)
[2017-02-19] MEDS: GABAPENTIN 100 MG CAP PO SCH ×2 (17:00→22:13)
[2017-02-19] MEDS ORDERED: LACTULOSE 20 GM/30 ML UDCUP PO PRN (18:49)
[2017-02-19] MEDS ORDERED: BISACODYL 10 MG SUPP PR PRN (18:49)
[2017-02-19] MEDS ORDERED: MAGNESIUM HYDROXIDE 30 ML UDCUP PO PRN (18:49)
[2017-02-19] MEDS ORDERED: POLYETHYLENE GLYCOL 3350 17 GM PKT PO PRN (18:49)
[2017-02-19] MEDS: SENNOSIDES/DOCUSATE SODIUM TAB PO SCH (22:13)
[2017-02-20] MEDS: HYDROCODONE/APAP 5/325 TAB PO PRN (06:06)
[2017-02-20] MEDS: ENOXAPARIN 30 MG/0.3 ML SYR SC SCH (09:14)
[2017-02-20] MEDS: SENNOSIDES/DOCUSATE SODIUM TAB PO SCH ×2 (09:14→21:47)
[2017-02-20] MEDS: GABAPENTIN 100 MG CAP PO SCH ×3 (09:14→21:47)
[2017-02-20] MEDS: COLCHICINE 0.6 MG CAP/TAB PO SCH (09:15)
[2017-02-20] MEDS ORDERED: LIDOCAINE 2% 5 ML SDV ID ONE ×2 (13:30→14:30)
--- NOTE | 2017-02-20 15:02 | HOSPPROG ---
Hospitalist Progress Note Assessment/Plan: fall/dizziness - no clear neuro etiology though he has many abnormalities - echo/tele ok - no clear cardiac etiology either (tele interp by me) - history very difficult given his mental status L4/5 severe stenosis - per nsg T12/L1 compression fx - pain better today, trial of brace per nsg ankle pain/swelling - MRI w evidence of sprain- I wonder if this isnt what led to fall, or occurred during fall small effusion evidence of prior severe ankle sprain had arthrocentesis today hip pain - check XR BERNARDINO on CKD - baseline SCr 1.3/1.4 - better today now euvolemic can stop ivf mild hematuria - no evidence for UTI; abx stopped L arachnoid cyst - no intervention per nsg and neuro chronic L ICA occlusion/aneurysm hx embolic CVA - embolic s/p PFO repair htn hld DNR lovenox ppx Subjective: case d/w dr august Objective: Vital Signs Temp Pulse Resp BP Pulse Ox 37.1 C 80 16 101/83 H 96 02/20/17 12:00 02/20/17 12:00 02/20/17 12:00 02/20/17 12:00 02/20/17 12:00 Laboratory Results 02/18/17 09:02 02/18/17 09:02 02/19/17 02/20/17 02/21/17 05:59 05:59 05:59 Intake Total 400 3103 Balance 400 3103 - Physical Exam Constitutional: no apparent distress, appears nourished Eyes: PERRL, anicteric sclera Ears, Nose, Mouth, Throat: moist mucous membranes, hearing normal Cardiovascular: regular rate and rhythym, no murmur, rub, or gallop Respiratory: no respiratory distress, no rales or rhonchi Gastrointestinal: normoactive bowel sounds, soft, non-tender abdomen Genitourinary: no bladder fullness, No hyatt in urethra Skin: warm, normal color Musculoskeletal: full muscle strength, no muscle tenderness Neurologic: AAOx3 ICD10 Worksheet Patient Problems: Problems Problem Status Onset Compression fracture of L1 lumbar vertebra Acute T12 vertebral fracture Acute Encephalopathy Acute Sepsis secondary to UTI Acute Stroke of unknown etiology Acute Weakness Acute
[2017-02-21] MEDS: ENOXAPARIN 30 MG/0.3 ML SYR SC SCH (09:47)
[2017-02-21] MEDS: COLCHICINE 0.6 MG CAP/TAB PO SCH (09:48)
[2017-02-21] MEDS: ACETAMINOPHEN 325 MG TAB PO PRN (09:50)
[2017-02-21] MEDS: SENNOSIDES/DOCUSATE SODIUM TAB PO SCH ×2 (09:54→21:56)
[2017-02-21] MEDS: GABAPENTIN 100 MG CAP PO SCH ×3 (09:55→21:56)
--- NOTE | 2017-02-21 14:24 | HOSPPROG ---
Hospitalist Progress Note Assessment/Plan: fall/dizziness - no clear neuro etiology though he has many abnormalities - echo/tele ok - no clear cardiac etiology either L4/5 severe stenosis - per nsg not felt to be causative for fall T12/L1 compression fx - pain better today, trial of brace per nsg ankle pain/swelling - MRI w evidence of sprain- I wonder if this isnt what led to fall, or occurred during fall small effusion evidence of prior severe ankle sprain had arthrocentesis yesterday- few urate crystals seen gout: started on renally dosed colchicine BERNARDINO on CKD - baseline SCr 1.3/1.4 - better today now euvolemic can stop ivf mild hematuria - no evidence for UTI; abx stopped L arachnoid cyst - no intervention per nsg and neuro chronic L ICA occlusion/aneurysm hx embolic CVA - embolic s/p PFO repair htn dispo: snf hld DNR lovenox ppx Subjective: ankle improved Objective: Vital Signs Temp Pulse Resp BP Pulse Ox 36.7 C 87 16 108/81 H 97 02/21/17 11:46 02/21/17 11:46 02/21/17 11:46 02/21/17 11:46 02/21/17 11:46 Microbiology 02/20/17 14:30 Gram Stain - Final Ankle - Aspirate Laboratory Results 02/18/17 09:02 02/18/17 09:02 02/20/17 02/21/17 02/22/17 05:59 05:59 05:59 Intake Total 3103 Balance 3103 - Physical Exam Constitutional: no apparent distress, appears nourished Eyes: PERRL, anicteric sclera Ears, Nose, Mouth, Throat: moist mucous membranes, hearing normal Cardiovascular: regular rate and rhythym, no murmur, rub, or gallop Respiratory: no respiratory distress, no rales or rhonchi Gastrointestinal: normoactive bowel sounds, soft, non-tender abdomen Genitourinary: no bladder fullness, No hyatt in urethra Skin: warm, normal color Musculoskeletal: full muscle strength, other (L ankle effusion) Neurologic: AAOx3, sensation intact bilaterally Psychiatric: interacting appropriately ICD10 Worksheet Patient Problems: Problems Problem Status Onset Compression fracture of L1 lumbar vertebra Acute T12 vertebral fracture Acute Encephalopathy Acute Sepsis secondary to UTI Acute Stroke of unknown etiology Acute Weakness Acute
--- NOTE | 2017-02-21 15:01 | ASMTCMCOM ---
CM Note CM Note Notes: CM spoke w/ Ashley MCCLENDON. CM called [facility] to see if they had a bed today and they do not have any male beds. CM met w/ regarding dispo planning. reports that [facility] is her first choice. will tour [facility] today. Julia from [facility] in today to do an onsite. does not want pt to go to any [facility] SNFs. Anticipates that pt will d/c tomorrow. CM to follow. Date Signed: 02/21/2017 03:01 PM Electronically Signed By:ZHENG Davidson
--- NOTE | 2017-02-22 04:33 | GCON ---
[f rep st] CONSULTATION PODIATRIC CONSULTATION DATE OF CONSULTATION: 02/20/2017 [facility] RT date of consultation. CHIEF COMPLAINT: Left ankle pain. HISTORY OF PRESENT ILLNESS: The patient is seen in room 388 at [facility] by referral from Dr. Eliseo Miles. He has a wound relatively poor historian today but his is there and relat es that he fell late last week in the shower. She relates that he cut up the back of both of his oh ves but they thought initially they could deal with it. A couple of days later, on February 15, he wa s taken to the emergency room by his and admitted to the hospital. The patient currently has mu ltiple medical issues including a presumed UTI and lumbar fracture but continued to have left ankle p ain. An MRI of the area was ordered which did show damage to the lateral collateral ligaments. 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 At this point, they would like to know what the diagnosis is and what treatment options are available for the problem. PAST MEDICAL HISTORY: Remarkable for hypertension, history of CVA, gout. SURGICAL HISTORY: Left hip replacement, PFO repair. MEDICATIONS: Acetaminophen, clindamycin. Currently taking Rocephin. ALLERGIES: To penicillin. SOCIAL HISTORY: The patient is . Lives at home. Denies smoking, rare alcohol usage. FAMILY HISTORY: Noncontributory. PHYSICAL EXAMINATION: GENERAL APPEARANCE: Well-nourished, well-developed 81-year-old white male. N o sign of acute distress. Alert and oriented bit very drowsy at this time. LOWER EXTREMITIES: Vasc ular: Dorsalis pedis, posterior tibial pulses are decreased but palpable bilaterally. Capillary ref ill to the hallux is less than 3 seconds. Obvious edema is noted to be occurring around the left ank le. Dermatologically tone, texture and turgor of the skin are all within normal limits. There are n o open lesions from the ankle distal. Patient does have full dressings on both calves that are not r emoved for evaluation at this time. The left ankle is not erythematous. It is mildly warm to touch. NEUROLOGIC: Achilles and patellar reflexes 2+ bilaterally. Muscle strength 5/5. Vibratory and sh hao/dull are intact and symmetrical as tested by 5.07 monofilament wire. MUSCULOSKELETAL: Range of motion of the ankle and subtalar joint cause considerable pain for the patient as does light palpatio n of the anterior aspect of the ankle. I am unable to perform an anterior drawer test at this time. There is considerable pain on palpation of the lateral collateral ligament complex. LABORATORY DATA: Laboratory values do not show any substantial increase in the white blood cell coun t. IMAGING: Review of the MRI today does show damage to both the anterior talofibular and calcaneal fib ular ligaments. IMPRESSION: 1. Edema left ankle. 2. Left ankle sprain, second degree. 3. Possible gout versus pseudogout. PLAN: Treatment today consisted of evaluation of the area. It was decided at this point that arthro centesis would be performed on the area. Informed consent was obtained and the anterior medial aspec t of the ankle was anesthetized with 3 cc of 2% Xylocaine plain. A sterile prep of the site was perf ormed before an 18-gauge needle was introduced. Minimal fluid was collected from the medial aspect a nd it was decided that the arthrocentesis then would be attempted on the anterior lateral aspect. Ag ain, the area was anesthetized with 3 cc of 2% Xylocaine plain before another sterile prep of the sit e was performed. The 18-gauge needle was introduced and this time 2 cc of synovial fluid was removed . It had a hemorrhagic appearance to it. It was not cloudy to indicate infective process. Both are as were cleaned and dressed appropriately. The specimen was sent in for culture and sensitivity as w ell as crystal analysis. Patient will be followed following these results. /[id number]
[2017-02-22 05:21] LABS: % IMMATURE GRANULYOCYTES 0.6 % (0.0-1.1); ABSOLUTE IMMATURE GRANULOCYTES 0.03 10^3/uL (0.00-0.10); ADD DIFF? NO; ADD MORPH? NO; ADD SCAN? NO; ATYPICAL LYMPHOCYTE FLAG 40 (0-99); FRAGMENT RBC FLAG 0 (0-99); HEMATOCRIT 39.8 % (40.0-51.0); HEMOGLOBIN 13.6 g/dL (13.7-17.5); LEFT SHIFT FLG 0 (0-99); LIPEMIA HEMOLYSIS FLAG 90 (0-99); MEAN CELL HEMOGLOBIN 31.8 pg (27.9-34.1); MEAN CELL HEMOGLOBIN CONCENTR. 34.2 g/dL (32.4-36.7); MEAN PLATELET VOLUME 9.8 fL (8.7-11.7); PLATELET CLUMPS FLAG 0 (0-99); PLATELET COUNT 225 10^3/uL (150-400); RED BLOOD CELL COUNT 4.28 10^6/uL (4.40-6.38); RED CELL DISTRIBUTION WIDTH 13.6 % (11.5-15.2)
[2017-02-22 05:36] LABS: ANION GAP 11 mEq/L (8-16); CALCIUM 8.3 mg/dL (8.5-10.4); CARBON DIOXIDE 21 mEq/l (22-31); CHLORIDE 111 mEq/L (97-110); CREATININE 1.3 mg/dL (0.7-1.3); GLOMERULAR FILTRATION RATE 53; GLUCOSE 106 mg/dL (70-100); POTASSIUM 4.2 mEq/L (3.5-5.2); SODIUM 143 mEq/L (134-144)
[2017-02-22] MEDS: COLCHICINE 0.6 MG CAP/TAB PO SCH (09:42)
[2017-02-22] MEDS: SENNOSIDES/DOCUSATE SODIUM TAB PO SCH ×2 (09:43→21:12)
[2017-02-22] MEDS: GABAPENTIN 100 MG CAP PO SCH ×3 (09:44→21:12)
[2017-02-22] MEDS: ENOXAPARIN 30 MG/0.3 ML SYR SC SCH (09:44)
--- NOTE | 2017-02-22 10:08 | NEUSURGPN ---
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 -MRI lumbar shows L4/5 stenosis but left ankle pain should not be coming from this and he is otherwise asymptomatic to this and neuro intact -L1 compression fracture appears chronic but has pain in this area and will get Lumbar corset brace for support as he is unlikely to tolerate Jewitt brace. Will wear brace when he is up and out of bed -Left ankle with swelling and pain but x-rays negative for fracture. Suspect ligamentous injury vs other pathology (gout?) and ortho consult may be useful to look at this -Will get MRI cervical today to eval for any issues which could be contributing to balance disturbance as well as diffuse right upper extremity weakness -Please call neurosurgery with any questions/concerns Subjective: Patient continues to have left ankle pain Objective: A&Ox3 MAEx4 5/5 RLE, LUE RUE give away weakness throughout all muscle groups, hand hypersensitivity LLE dorsal flexion/extension weak, limited exam due to left ankle pain Neuro Check Frequency: per routine Urinary Catheter in Place: No - Physician Discussed Patient with : [facility] Physical Exam - Vitals, I&O, Labs I and O 02/21/17 02/22/17 02/23/17 05:59 05:59 05:59 Intake Total 736 Balance 736 Intake: Oral (ml) 736 Other: Intake Quantity No Yes Sufficient Number of Voids Diapers/Briefs 2 1 Number of Stools Bedside Commode 1 Diapers/Briefs 2 Microbiology 02/20/17 14:30 Gram Stain - Final Ankle - Aspirate Vital Signs Temp Pulse Resp BP Pulse Ox 36.7 C 69 16 122/78 H 93 02/22/17 07:55 02/22/17 07:55 02/22/17 07:55 02/22/17 07:55 02/22/17 07:55 Laboratory Results 02/22/17 04:59 02/22/17 05:00 ICD10 Worksheet Patient Problems: Problems Problem Status Onset Compression fracture of L1 lumbar vertebra Acute T12 vertebral fracture Acute Encephalopathy Acute Sepsis secondary to UTI Acute Stroke of unknown etiology Acute Weakness Acute
--- NOTE | 2017-02-22 13:12 | HOSPPROG ---
Hospitalist Progress Note Assessment/Plan: fall/dizziness - no clear neuro etiology though he has many abnormalities - echo/tele ok - no clear cardiac etiology either L4/5 severe stenosis - per nsg not felt to be causative for fall T12/L1 compression fx - pain better today, trial of brace per nsg ankle pain/swelling - MRI w evidence of sprain- I wonder if this isnt what led to fall, or occurred during fall small effusion evidence of prior severe ankle sprain had arthrocentesis yesterday- few urate crystals seen gout: started on renally dosed colchicine BERNARDINO on CKD - baseline SCr 1.3/1.4 - better today now euvolemic can stop ivf mild hematuria - no evidence for UTI; abx stopped L arachnoid cyst - no intervention per nsg and 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 no complaints Objective: Vital Signs Temp Pulse Resp BP Pulse Ox 36.7 C 69 16 122/78 H 93 02/22/17 07:55 02/22/17 07:55 02/22/17 07:55 02/22/17 07:55 02/22/17 07:55 Microbiology 02/20/17 14:30 Gram Stain - Final Ankle - Aspirate Laboratory Results 02/22/17 04:59 02/22/17 05:00 02/21/17 02/22/17 02/23/17 05:59 05:59 05:59 Intake Total 736 Balance 736 - Physical Exam Constitutional: no apparent distress, appears nourished Eyes: PERRL, anicteric sclera Ears, Nose, Mouth, Throat: moist mucous membranes, hearing normal Cardiovascular: regular rate and rhythym, no murmur, rub, or gallop Respiratory: no respiratory distress, no rales or rhonchi Gastrointestinal: normoactive bowel sounds, soft, non-tender abdomen Genitourinary: no bladder fullness, No hyatt in urethra Skin: warm, normal color Musculoskeletal: No full muscle strength Neurologic: AAOx3 ICD10 Worksheet Patient Problems: Problems Problem Status Onset Compression fracture of L1 lumbar vertebra Acute T12 vertebral fracture Acute Encephalopathy Acute Sepsis secondary to UTI Acute Stroke of unknown etiology Acute Weakness Acute
--- NOTE | 2017-02-22 15:21 | ASMTCMCOM ---
CM Note CM Note Notes: CM met w/ pt and Mily for dispo planning. Mily toured [facility] yesterday and she thinks that it would be a good fit for pt. CM called [facility] today and they do not have a bed available. Mily reports that she would feel comfortable w/ discharging to either facilities once hospitalist clears pt medically. Mily is requesting hospitalist keep pt for one more day in hopes that [facility] will have a bed available. CM called [facility] and there is a bed available. CM to follow. Date Signed: 02/22/2017 03:20 PM Electronically Signed By:ZHENG Davidson
[2017-02-22 22:56] VITALS: PULSE 65
--- NOTE | 2017-02-23 08:11 | NEUSURGPN ---
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 -MRI lumbar shows L4/5 stenosis but left ankle pain should not be coming from this and he is otherwise asymptomatic to this and neuro intact -L1 compression fracture appears chronic but has pain in this area, has Lumbar corset for he is unable to tolerate Jewitt brace. Will wear brace when he is up and out of bed -Left ankle with swelling and pain but x-rays negative for fracture. Suspect ligamentous injury vs other pathology (gout?) and ortho consult may be useful to look at this -Right hand and elbow swelling, will defer to medicine for treatment. Suspect gout? -MRI cervical spine demonstrates foraminal stenosis at C2-3, C3-4, C4-5, C5-6 and C6-7. No compression of spinal cord. Findings do not suggest causative reason for balance disturbance. -Xrays lumbar spine performed 02/18 demonstrated chronic appearing L1 fracture which was unchanged in brace, no need for additional xrays at this point -Ok to dc to rehab vs SNF per neurosurgery. Will need to wear corset brace when out of bed. Will need to follow up with neurosurgery in 3-4 weeks to eval fracture even though it appears to be chronic. -Please call neurosurgery with any questions/concerns Subjective: Patient has right hand and elbow pain Objective: MAEx4 5/5 RLE, LUE RUE give away weakness throughout all muscle groups, hand hypersensitivity- painful right hand and right elbow to touch LLE dorsal flexion/extension weak, limited exam due to left ankle pain Neuro Check Frequency: per routine Urinary Catheter in Place: No - Physician Discussed Patient with : [facility] Physical Exam - Vitals, I&O, Labs I and O 02/22/17 02/23/17 02/24/17 05:59 05:59 05:59 Intake Total 736 300 Balance 736 300 Intake: Oral (ml) 736 300 Other: Intake Quantity Yes Yes Sufficient Number of Voids Diapers/Briefs 1 Incontinence 3 Number of Stools Bedside Commode 1 Diapers/Briefs 2 Microbiology 02/20/17 14:30 Gram Stain - Final Ankle - Aspirate Vital Signs Temp Pulse Resp BP Pulse Ox 36.4 C 65 16 111/68 91 L 02/22/17 22:55 02/22/17 22:55 02/22/17 22:55 02/22/17 22:55 02/22/17 22:55 Laboratory Results 02/22/17 04:59 02/22/17 05:00 ICD10 Worksheet Patient Problems: Problems Problem Status Onset Compression fracture of L1 lumbar vertebra Acute T12 vertebral fracture Acute Encephalopathy Acute Sepsis secondary to UTI Acute Stroke of unknown etiology Acute Weakness Acute
[2017-02-23 08:31] VITALS: BP 114/74; RESP 18; TEMP 97.5; O2SAT 94
[2017-02-23] MEDS: ENOXAPARIN 30 MG/0.3 ML SYR SC SCH (09:24)
[2017-02-23] MEDS: COLCHICINE 0.6 MG CAP/TAB PO SCH (09:25)
[2017-02-23] MEDS: SENNOSIDES/DOCUSATE SODIUM TAB PO SCH (09:26)
[2017-02-23] MEDS: GABAPENTIN 100 MG CAP PO SCH (09:26)
[2017-02-23] MEDS: ACETAMINOPHEN 325 MG TAB PO PRN (12:13)
--- NOTE | 2017-02-23 12:33 | HOSPPROG ---
Hospitalist Progress Note Assessment/Plan: fall/dizziness - no clear neuro etiology though he has many abnormalities - echo/tele ok - no clear cardiac etiology either no cervical central canal stenosis L4/5 severe stenosis - per nsg not felt to be causative for fall T12/L1 compression fx - pain better today, trial of brace per nsg ankle pain/swelling - MRI w evidence of sprain- I wonder if this isnt what led to fall, or occurred during fall small effusion evidence of prior severe ankle sprain had arthrocentesis yesterday- few urate crystals seen gout: started on renally dosed colchicine BERNARDINO on CKD - baseline SCr 1.3/1.4 - better today now euvolemic can stop ivf mild hematuria - no evidence for UTI; abx stopped L arachnoid cyst - no intervention per nsg and 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 c spine MR w minimal central cancal stenosis. neuroforaminal stenoses noted. d/w neurosurgery PA Objective: Vital Signs Temp Pulse Resp BP Pulse Ox 36.4 C 65 18 114/74 94 02/23/17 08:00 02/23/17 08:00 02/23/17 08:00 02/23/17 08:00 02/23/17 08:00 Microbiology 02/20/17 14:30 Gram Stain - Final Ankle - Aspirate Laboratory Results 02/22/17 04:59 02/22/17 05:00 02/22/17 02/23/17 02/24/17 05:59 05:59 05:59 Intake Total 736 300 Balance 736 300 - Physical Exam Constitutional: no apparent distress, appears nourished Eyes: PERRL, anicteric sclera Ears, Nose, Mouth, Throat: moist mucous membranes, hearing normal Cardiovascular: regular rate and rhythym, no murmur, rub, or gallop Respiratory: no respiratory distress, no rales or rhonchi Gastrointestinal: normoactive bowel sounds, soft, non-tender abdomen Genitourinary: no bladder fullness, No hyatt in urethra Skin: warm, normal color Musculoskeletal: No full muscle strength Neurologic: AAOx3 ICD10 Worksheet Patient Problems: Problems Problem Status Onset Compression fracture of L1 lumbar vertebra Acute T12 vertebral fracture Acute Encephalopathy Acute Sepsis secondary to UTI Acute Stroke of unknown etiology Acute Weakness Acute
--- NOTE | 2017-02-23 13:19 | PDIAF ---
- Diagnosis Diagnosis: falls, weakness Code Status: Do Not Resuscitate - Medication Management Discharge Medications: Medications to Continue on Transfer Acetaminophen [Tylenol 325mg (*)] 325 mg PO DAILY PRN 02/15/17 [Last Taken Unknown] Allopurinol [Allopurinol 100 MG (*)] 100 mg PO DAILY #30 tab 02/23/17 [Last Taken Unknown] Gabapentin [Neurontin 100 MG (*)] 100 mg PO TID cap 02/23/17 [Last Taken Unknown] Polyethylene Glycol 3350 [Miralax 17 gm (*)] 17 gm PO DAILY PRN pkt 02/23/17 [ Last Taken Unknown] Sennosides/Docusate Sodium [Senokot-S] 1 - 2 tab PO BID tab 02/23/17 [Last Taken Unknown] oxyCODONE IR [Oxycodone Ir (*)] 5 mg PO Q4HRS PRN tab 02/23/17 [Last Taken Unknown] Discharge Medications: Refer to the Discharge Home Medication list for PRN reason. - Orders Services needed: Registered Nurse, Physical Therapy, Occupational Therapy, Speech Language Pathologist Diet Texture: Regular Texture Diet, [place] Thick Liquids, Meds Whole w/Liquids, Meds Whole in Puree - Follow Up Care Current Providers and Referrals: Chantal Zavala MD [Medical Doctor] - (3-4 WEEK FOLLOW UP) NONE *PRIMARY CARE P,. [Unknown] - As per Instructions
--- NOTE | 2017-02-23 13:46 | ASMTCMCOM ---
CM Note CM Note Notes: CM met w/ Mily, pts for dispo planning. CM informed her that there isn't a bed at [facility] today. Mily is agreeable to having pt go to [facility]. Pt will be discharging to [facility] today. CM provided DANELLE Branch w/ phone number to [facility] to give report. Pt will be transported via stretcher with [facility]. CM completed PCS form and put a copy in pts chart. CM sent over d/c orders to [facility]. CM available for changes. Date Signed: 02/23/2017 01:45 PM Electronically Signed By:ZHENG Davidson
--- NOTE | 2017-02-23 13:57 | GDS ---
[f rep st] DISCHARGE SUMMARY DISCHARGE DIAGNOSES: 1. Fall secondary to weakness. 2. Severe ankle sprain. 3. Gout. 4. Chronic kidney disease. 5. Hematuria. 6. Arachnoid cyst. 7. 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 8. History of embolic cerebrovascular accident, status post patent foramen ovale repair. CONSULT: Neurology and Neurosurgery. HISTORY OF PRESENT ILLNESS: Please see admission history and physical by Dr. Haley Smith. The roland[place] ent presented with a fall that happened in the shower. He was showering with his , as he often d oes because he has been getting dizzy. He had a neurologic/stroke workup. It was felt to be noncaus ative. He had a head MRI/MRA that showed distal left internal carotid aneurysm that was known, as we ll as suspected artifact of the A1 segment, otherwise normal. He had a neck MRA showing patent verte brals, distal left internal carotid artery aneurysm. He was seen by Neurology, who felt this was non causative. Notably, he did not have any vertebral artery stenosis. He had MRI of his cervical spine showing no central canal stenosis. He had some neuroforaminal steno sis with not a whole lot of weakness, and this was felt that physical therapy was more appropriate th an immediate surgical response. He had a lumbar spine MRI, which showed compression fracture of L1. Neurosurgery felt that conservat yady management was more appropriate than surgery. He was given a brace. Regarding his ankle, he had an MRI showing severe ankle sprain, as well as an effusion. Podiatry per formed arthrocentesis which showed a small amount of bloody fluid. There were a few urate crystals, consistent with probably more an ankle sprain with some residual crystal. He was given some colchici ne, which he tolerated. He had a stroke workup that was negative, including an echocardiogram that was relatively unremarkabl e. The patient received daily physical therapy. He certainly is a candidate for [facility]. He is discharged to [facility]. NEW MEDICATIONS: Allopurinol, started dose for his chronic kidney disease. /[id number]/MODL
--- NOTE | 2017-02-23 15:56 | ASDISCHSUM ---
Discharge Information Plan Status:SNF Medically Cleared to Leave:02/23/2017 Discharge Date:02/23/2017 01:16 PM CM D/C Disposition:[facility]ior Care Facility ADT D/C Disposition:Senior Care Facility Projected Discharge Date:02/23/2017 11:00 AM Transportation at D/C:Wheelchair Van Discharge Delay Reason: Follow-Up Date:02/23/2017 11:00 AM Discharge Slot: Final Diagnosis: Placement Information Referral Type:*[facility]/SNF Referral ID:[id number] Provider Name:[facility] Address 1:[address] Address 2: City:[place] Selection Factors: State:[place] Patient Contact Information Contact Name:ROSA Relationship: Address:[address] [place] Work Phone: [facility]:[place] Alternate Phone: [facility]/Zip Code:[place] [address] Email: Financial Information Financial Class: Primary Plan Desc:MEDICARE INPATIENT Primary Plan Number:[id number] Secondary Plan Desc:[facility] Secondary Plan Number:[id number] Assessment Information [facility] CM Progress Note CM Note CM Note Notes: Dc needs unclear, PT to eval, CM w/f Date Signed: 02/16/2017 03:34 PM Electronically Signed By:Sulema Subramanian RN [facility] CM Progress Note CM Note CM Note Notes: CM still waiting for PT/OT evals, dc needs uncertain. Date Signed: 02/18/2017 06:02 PM Electronically Signed By:Sulema Subramanian RN [facility] CM Progress Note CM Note CM Note Notes: Case Management Note Met w/pt and Mily [phone]. PT and OT recommending SNF rehab. Pt reports recent stay in [facility] in Jun or June 2016. [facility] is first choice today. Discussed other [facility] rehab options. Faxed referrals to [facility] and [facility] at pt request. Case Management to follow and will alert family when accepted at a facility. Date Signed: 02/19/2017 04:20 PM Electronically Signed By:Tara Gilbert RN [facility] CM Progress Note CM Note CM Note Notes: CM spoke w/ Ashley MCCLENDON. CM called [facility] to see if they had a bed today and they do not have any male beds. CM met w/ regarding dispo planning. reports that [facility] is her first choice. will tour [facility] today. Julia from [facility] in today to do an onsite. does not want pt to go to any [facility] SNFs. Anticipates that pt will d/c tomorrow. CM to follow. Date Signed: 02/21/2017 03:01 PM Electronically Signed By:ZHENG Davidson [facility] CM Progress Note CM Note CM Note Notes: CM met w/ pt and Miyl for dispo planning. Mily toured [facility] yesterday and she thinks that it would be a good fit for pt. CM called [facility] today and they do not have a bed available. Mily reports that she would feel comfortable w/ discharging to either facilities once hospitalist clears pt medically. Mily is requesting hospitalist keep pt for one more day in hopes that [facility] will have a bed available. CM called [facility] and there is a bed available. CM to follow. Date Signed: 02/22/2017 03:20 PM Electronically Signed By:ZHENG Davidson [facility] SANDER Progress Note CM Note CM Note Notes: CM met w/ Mily, pts for dispo planning. CM informed her that there isn't a bed at [facility] today. Mily is agreeable to having pt go to [facility]. Pt will be discharging to [facility] today. CM provided DANELLE Branch w/ phone number to [facility] to give report. Pt will be transported via stretcher with [facility]. CM completed PCS form and put a copy in pts chart. CM sent over d/c orders to [facility]. CM available for changes. Date Signed: 02/23/2017 01:45 PM Electronically Signed By:ZHENG Davidson Intervention Information
== END 2017-02-23 13:16 | DRG 556 ==
LOC: EDUNIT# → F3E 13:32
PROVIDERS: ADMIT Family Medicine; ATTEND Internal Medicine
PROC: 2W35X3Z Immobilization of Back using Brace (ICD-10-PCS; 2017-02-17)
PROC: 0S9G3ZX Drainage of Left Ankle Joint, Percutaneous Approach, Diagnostic (ICD-10-PCS; principal; 2017-02-23)
DX: M62.81 Muscle weakness (generalized) (principal); S93.402A Sprain of unspecified ligament of left ankle, initial encounter; W18.2XXA Fall in (into) shower or empty bathtub, initial encounter; Y93.E1 Activity, personal bathing and showering; Y92.012 Bathroom of single-family (private) house as the place of occurrence of the external cause; M48.56XA Collapsed vertebra, not elsewhere classified, lumbar region, initial encounter for fracture; N17.9 Acute kidney failure, unspecified; I12.9 Hypertensive chronic kidney disease with stage 1 through stage 4 chronic kidney disease, or unspecified chronic kidney disease; N18.3 Chronic kidney disease, stage 3 (moderate); R31.9 Hematuria, unspecified; G93.0 Cerebral cysts; I67.1 Cerebral aneurysm, nonruptured; M48.07 Spinal stenosis, lumbosacral region; M48.061 Spinal stenosis, lumbar region without neurogenic claudication; M10.9 Gout, unspecified; E78.5 Hyperlipidemia, unspecified; Z86.73 Personal history of transient ischemic attack (TIA), and cerebral infarction without residual deficits; Z79.82 Long term (current) use of aspirin; Z96.642 Presence of left artificial hip joint; Z66 Do not resuscitate
CPT/HCPCS: 92523-GN; 92526-GN; 92610-GN; 97162-GP; 97166-GO; 97530-GP; 97535-GO; G0008; G8978-GP-CM; G8979-GP-CK; G8987-GO-CL; G8988-GO-CJ; G8989-GO-CL; G8996-GN-CI; G8997-GN-CI; G8998-GN-CI; G9168-GN-CL; G9169-GN-CJ; J0696; J1650

== ENCOUNTER 2017-03-22 11:28 | Inpatient (IN) | payer OTHER ==
[2017-03-22] MEDS ORDERED: BISACODYL 10 MG SUPP PR PRN (12:40)
[2017-03-22] MEDS ORDERED: oxyCODONE IR 5 MG TAB PO PRN (12:40)
[2017-03-22] MEDS ORDERED: MAGNESIUM HYDROXIDE 30 ML UDCUP PO PRN (12:40)
[2017-03-22] MEDS ORDERED: HYDROCODONE/APAP 5/325 TAB PO PRN (12:40)
[2017-03-22] MEDS ORDERED: ONDANSETRON DISINTEGRATING 4 MG TAB PO PRN (12:40)
[2017-03-22] MEDS ORDERED: POLYETHYLENE GLYCOL 3350 17 GM PKT PO PRN ×2 (12:40→13:50)
[2017-03-22] MEDS ORDERED: LACTULOSE 20 GM/30 ML UDCUP PO PRN (12:40)
[2017-03-22] MEDS ORDERED: ZOLPIDEM TARTRATE 5 MG TAB PO PRN (12:40)
[2017-03-22] MEDS ORDERED: ONDANSETRON 4 MG/2 ML VIAL IVP PRN (12:40)
[2017-03-22] MEDS ORDERED: NS 1,000 ML IV SCH (12:45)
--- NOTE | 2017-03-22 13:36 | GHP ---
[f rep st] HISTORY AND PHYSICAL DATE OF ADMISSION: 03/22/2017 CHIEF COMPLAINT: Follow up L1 compression fracture, inability to walk, weakness in both lower extremities. HISTORY OF PRESENT ILLNESS: Fran is an 81-year-old male who presented to the office today. I saw him at the appointment this a.m. He is a followup recheck from a post hospital visit in which he suffered an L1 compression fracture from a fall on 02/15/2018. He fell and was seen in the hospital by Dr. Zavala for this fracture. We are treating him with a lumbar corset brace. He had a scheduled followup visit with us in the office simply to review x-rays today. When I saw the patient, both he and his daughter state that he has had progressive weakness over the past 4 weeks and now is unable to walk. Weakness has worsened over that time period. This was new information that was reported to me today and was not aware of this prior to my office visit with him today. He has been at [facility] and [facility]. He denies any loss of bowel or bladder control, but does have this weakness in lower extremities and does have pain in the lower extremities. He had an MRI of his lumbar spine, which showed some severe stenosis at L4-5 based on his hospital stay in the middle of January of 2017. No saddle numbness. He denies any chest pain or shortness of breath. No abdominal pain. No complaints. PAST MEDICAL HISTORY: Significant for the followin. Hypertension. 2. Hyperlipidemia. 3. History of embolic CVA after right hip surgery through a patent foramen ovale. 4. Hip arthritis. PAST SURGICAL HISTORY: 1. Hip surgery. 2. Surgical repair of patent foramen ovale. 3. Left hip replacement. CURRENT MEDICATIONS: 1. Metamucil 1 teaspoon by mouth 2 times daily to prevent constipation. 2. Milk of magnesia 400 mg/5 mL, give 30 mL by mouth as needed for constipation daily. 3. Albuterol solution 0.5-2.5 mg per 3 mL, give 3 mL inhaled orally every 4 hours as needed for shortness of breath or wheezing. 4. Vitamin D3 5000 units, give 1 tablet by mouth in the morning every Tuesday for vitamin D level 18.2, nurse to order lab. 5. Tylenol 325 mg, 1 tablet every 6 hours as needed for pain. 6. Senokot. 7. Allopurinol 100 mg by mouth in the morning for gout. 8. Gabapentin 100 mg 3 times a day. 9. Polyethylene glycol 3350 granules, give 17 g by mouth every 24 hours as needed for constipation. IMMUNIZATIONS: Reported up to date. ALLERGIES: Penicillin. SOCIAL HISTORY: Patient is . Never smoked. Rarely uses any alcohol. He lives with his . REVIEW OF SYSTEMS: A 10-point review of systems as noted above in the HPI, otherwise negative. PHYSICAL EXAMINATION: GENERAL: This is an awake, alert, oriented male, in no acute distress. VITAL SIGNS: Most recent vital signs: Blood pressure 139/89, with a MAP of 105, 64 heart rate, 16 respirations, 95% on room air. HEENT: Head is normocephalic, atraumatic. Pupils are equal, round, reactive to light. EOMI. Full visual boothe by confrontation. Ears are patent. Nose is patent. NECK: Soft and supple. No midline tenderness. Full range of motion in flexion, extension, lateral bending, rotation. RESPIRATORY AND CARDIAC: Deferred. ABDOMEN: Soft, nontender. No peritoneal signs. AND RECTAL: Deferred. NEURO: Patient is awake, alert, oriented to name, place, location, date, time, and situation. Memory is intact to immediate, past, and current events. Speech: No aphasia, dysarthria, dysphonia. Cranial nerves 2-12 are grossly intact. Motor: Patient has 5/5 strength in the bilateral upper extremities to include deltoids, biceps, triceps, brachioradialis, wrist flexion , extensors, automobile accessories installer, intrinsic, fingers. Iliopsoas was right at 4-/5, left at 3/5 , quadriceps right 4-/5, left 3/5. Hamstrings bilateral 4-/5, tibialis anterior 4-/5 bilaterally. Gastrocsoleus was left 3/5, right 4/5, and EHL was 5 /5 bilaterally. Sensation is intact to light touch throughout all dermatome distributions, upper/lower extremities. Negative straight leg raise. Negative ZOE test. Reflexes of the biceps, triceps, brachioradialis, knee jerk, and ankle jerk 2+/4, except as noted at 1+ bilaterally at the patellar and 0 of Achilles bilaterally. He had an absent Zimmer's but 1-2 beat of clonus on the right, 3-4 on the left. Gait: He is unable to ambulate. MEDICAL DECISION MAKING/DIAGNOSTIC STUDIES: X-rays obtained, reviewed in the office, of an L1 compression fracture. Images obtained today at [facility] show what appear to be a stable L1 compression fracture. There is an x-ray that was ordered today. The report is still pending from radiology. Pending MRI of the cervical, thoracic and lumbar spine. Pending laboratory evaluation. ASSESSMENT: 1. Bilateral lower extremity weakness, inability to walk. 2. L1 compression fracture from fall on 02/15/2017. 3. Upper motor neuron signs noted on exam with clonus. 4. Multiple medical conditions being managed by Internal Medicine. PLAN/DISCUSSION: The patient is an 81-year-old male who was seen in the office today after having a fall on 02/15/2017. He fell. He was seen in the hospital , had an L1 compression fracture. Was treated with an LSO brace. He has been in rehab for the past 4 weeks. I saw him in the office today, and it was discovered that he has had worsening weakness in bilateral lower extremities. I spoke with Dr. Chapman, and he is in agreement with admission of the patient to the hospital with further imaging of his cervical, thoracic and lumbar spine as the patient does have upper motor neuron signs, including clonus in both legs. His weakness has progressed, and we felt that it was medically necessary for him to be admitted to the hospital for further care. PT and OT were ordered. Imaging was ordered, laboratory tests as well. I did speak with Dr. Davis from Internal Medicine, and she will see him later today to help co-manage some of his medical concerns. The patient will be seen by Dr. Chapman as well. The patient and family understand and agree. /[id number]/MODL MTDD
[2017-03-22] MEDS ORDERED: ACETAMINOPHEN 325 MG TAB PO PRN (13:50)
[2017-03-22] MEDS ORDERED: LORazepam 0.5 MG TAB PO PRN (13:50)
[2017-03-22 14:29] LABS: ALANINE AMINOTRANSFERASE 26 IU/L (21-72); ALBUMIN 2.6 g/dL (3.5-5.0); ALKALINE PHOSPHATASE 90 IU/L (38-126); ANION GAP 10 mEq/L (8-16); ASPARTATE AMINOTRANSFERASE 22 IU/L (17-59); BILIRUBIN,TOTAL 0.8 mg/dL (0.1-1.4); CALCIUM 8.4 mg/dL (8.5-10.4); CARBON DIOXIDE 24 mEq/l (22-31); CHLORIDE 106 mEq/L (97-110); CREATININE 1.1 mg/dL (0.7-1.3); GLOMERULAR FILTRATION RATE > 60; GLUCOSE 84 mg/dL (70-100); POTASSIUM 4.8 mEq/L (3.5-5.2); SODIUM 140 mEq/L (134-144); TOTAL PROTEIN 5.1 g/dL (6.3-8.2)
[2017-03-22] MEDS ORDERED: ALTEPLASE 2 MG VIAL IVP PRN (14:42)
[2017-03-22] MEDS: GABAPENTIN 100 MG CAP PO SCH (17:55)
[2017-03-22 20:30] LABS: % IMMATURE GRANULYOCYTES 0.6 % (0.0-1.1); ABSOLUTE IMMATURE GRANULOCYTES 0.03 10^3/uL (0.00-0.10); ADD DIFF? NO; ADD MORPH? NO; ADD SCAN? NO; ATYPICAL LYMPHOCYTE FLAG 0 (0-99); FRAGMENT RBC FLAG 0 (0-99); HEMATOCRIT 38.9 % (40.0-51.0); HEMOGLOBIN 12.7 g/dL (13.7-17.5); LEFT SHIFT FLG 0 (0-99); LIPEMIA HEMOLYSIS FLAG 80 (0-99); MEAN CELL HEMOGLOBIN CONCENTR. 32.6 g/dL (32.4-36.7); MEAN PLATELET VOLUME 9.3 fL (8.7-11.7); PLATELET CLUMPS FLAG 0 (0-99); PLATELET COUNT 164 10^3/uL (150-400); RED BLOOD CELL COUNT 4.23 10^6/uL (4.40-6.38); RED CELL DISTRIBUTION WIDTH 13.3 % (11.5-15.2)
[2017-03-22 20:38] LABS: INR 1.15 (0.83-1.16); PROTIME(PATIENT) 14.7 SEC (12.0-15.0)
[2017-03-22] MEDS: ACETAMINOPHEN 325 MG TAB PO PRN (21:03)
[2017-03-22] MEDS: SENNOSIDES/DOCUSATE SODIUM TAB PO SCH (22:20)
[2017-03-23] MEDS: GABAPENTIN 100 MG CAP PO SCH ×4 (00:07→21:10)
--- NOTE | 2017-03-23 02:49 | GCON ---
[f rep st] CONSULTATION CONSULTING QUESTION: Medication management. HISTORY OF PRESENT ILLNESS: An 81-year-old male who was discharged from the hospital on 02/23/2017 a fter a fall. Patient was diagnosed with a compression fracture of L1 during this hospital stay. He was followed closely by Neurosurgery, provided with bracing for stabilization. Patient was discharge d to inpatient rehabilitation where he had been noted to have slow progress with progressive left low er extremity pain and weakness. Patient re-presented to the Neurosurgery Clinic today and was admitt ed for inpatient evaluation and likely surgical intervention. On the medical floor patient is denyin g any chest pain, palpitations, shortness of breath. Denying lightheadedness. Reports consistent st able difficulty intermittently swallowing at the inpatient rehabilitation facility. Patient's oral i ntake has been low. His appetite per his report is simply week. The patient has been having normal stools. Denies dysuria or hematuria. Denies myalgias or rashes. PAST MEDICAL HISTORY: 1. Chronic kidney disease. 2. History of an embolic stroke status post PFO closure. 3. Hypertension. 4. Hyperlipidemia. 5. Gout. 6. 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 7. Stable L1 compression fracture. 8. L4-L5 lumbar stenosis. SOCIAL HISTORY: Negative for tobacco, alcohol or illicit drugs. Patient has recently been residing at inpatient rehabilitation. FAMILY HISTORY: Both parents are . REVIEW OF SYSTEMS: A 10-point review of systems is negative with the exception of that reported in t he HPI. PHYSICAL EXAMINATION: VITAL SIGNS: Blood pressure is 139/89, heart rate 64, respiratory rate 16, sa turating 93% on room air. Afebrile. GENERAL: This is a pleasant elderly male, sitting up in bed. HEENT: Notable for dry mucous membranes. Eye exam is negative for any icterus. CARDIAC: Patient i s regular rate and rhythm. A quiet systolic murmur is appreciated. PULMONARY: Adequate respiratory effort. Patient is clear to auscultation bilaterally. GASTROINTESTINAL: Positive bowel sounds. A BDOMEN: Soft and nontender. MUSCULOSKELETAL: Negative for any lower extremity edema. SKIN: Negat yady for any rashes. NEUROLOGIC: Patient is alert and oriented x3. Notable decreased strength in hi s right upper extremity. 4/5 in his left lower extremity which is 3/5. Patient has pain in both ext ension and flexion of the left lower extremity. PSYCHIATRIC: He is pleasant and cooperative on inte rview and examination. LABORATORY DATA: White count 8.1, last checked on 02/22/2017. Creatinine is 1.1 which is lower than recent baselines. Sodium 140, lumbar spine x-ray, which I personally reviewed and interpreted shows a subacute L1 compression fracture without new compression fractures. ASSESSMENT AND PLAN: This is an 81-year-old male with known cervical and lumbar spine disease being admitted for surgical evaluation and intervention for left lower extremity weakness and difficulty am bulating. 1. Lower extremity weakness. Patient is being admitted for imaging and surgical evaluation by Neuro surgery. We will follow their lead on imaging and a plan related. Based on our evaluation, patient is safe for intraoperative intervention as soon as necessary. 2. History of cerebrovascular accident status post PFO closure. Patient is neurologically intact. Will continue on his home medications without alteration. 3. Chronic kidney disease. Patient's creatinine at presentation was 1.1 better than previously umair ured baselines. Agree with normal saline while patient is n.p.o. and will recheck his renal function postoperatively. 4. Gout. Patient on renally dosed allopurinol. 5. Chronic neuropathy. Patient will be continued on gabapentin 100 t.i.d. 6. Hypertension. Patient's blood pressures are within normal range currently. Would not add any hy pertensive agents at this time. 7. Hyperlipidemia. Patient has not historically been on medications, will not initiate any at this time. 8. Prophylaxis. Lovenox when cleared by neurosurgery. 9. Diet: N.p.o. for possible trip to the OR. DISPOSITION: I expect greater than 2 midnights as the patient is presenting with acute neurologic de ficits requiring neurosurgical evaluation and potentially intervention. I have discussed the case wi jens Syed Leonardo from Neurosurgery. We will happily follow along for med on medical management. Thank you for the consultation. /[id number]/MODL
[2017-03-23] MEDS: SENNOSIDES/DOCUSATE SODIUM TAB PO SCH ×2 (10:00→21:10)
[2017-03-23] MEDS: ALLOPURINOL 100 MG TAB PO SCH (10:00)
--- NOTE | 2017-03-23 11:00 | WOCRNPDOC ---
WOCRN Advanced Assessment Note - Skin Integrity Problem, Advanced Assess Coccyx Pressure Injury Dressing Type: Open to Air Site Measurement - Head-to-Toe Length X Width X Depth (cm): 2x2x0 Pressure Injury Stage: Stage 1 Pressure Injury Present on Admit: Yes Skin Integrity Problem Comment: Education with patient and family member about need to offload and pressure injury prevention and causes. Wound care will sign off. Left Ear Pressure Injury Dressing Type: Open to Air Site Measurement - Head-to-Toe Length X Width X Depth (cm): 0.4x0.2x0 Pressure Injury Stage: Stage 1 Pressure Injury Present on Admit: Yes Skin Integrity Problem Comment: Place cushions under tubing please. Reported to DANELLE Alford.
--- NOTE | 2017-03-23 13:37 | NEUSURGPN ---
Assessment/Plan: 81 yr old with hx of L1 fracture, L4-5 stenosis, progressive leg weakness Plan: PT/OT to eval and treat Consulted neurology to eval lower extremity weakness Appreciate medicine input for medical management Lumbar MRI demonstrates stenosis at L4-5 Thoracic spine MRI negative Patient may have a diet today Discussed with Dr Chapman Subjective: Patient feels his legs feels a little better this am Objective: PERRLA AxO x3 bilateral df 3/5 right ta 4/5 sensation intact to lt touch BLE Neuro Check Frequency: per routine Urinary Catheter in Place: No - Physician Discussed Patient with : [facility] Physical Exam - Vitals, I&O, Labs I and O 03/22/17 03/23/17 03/24/17 05:59 05:59 05:59 Intake Total 240 Balance 240 Weight 76.204 kg Intake: Oral (ml) 240 Other: Intake Quantity Yes Sufficient Number of Voids Incontinence 1 Vital Signs Temp Pulse Resp BP Pulse Ox 37.0 C 82 16 95/64 L 94 03/23/17 08:00 03/23/17 12:00 03/23/17 12:00 03/23/17 12:00 03/23/17 12:00 Laboratory Results 03/22/17 Unknown 03/22/17 13:50 ICD10 Worksheet Patient Problems: Problems Problem Status Onset Compression fracture of L1 lumbar vertebra Acute Encephalopathy Acute Sepsis secondary to UTI Acute Stroke of unknown etiology Acute T12 vertebral fracture Acute Weakness Acute
--- NOTE | 2017-03-23 14:48 | HOSPPROG ---
Hospitalist Progress Note Assessment/Plan: # LE weakness - admitted by neurosurgery for eval and possible surgery - MRI (personally reviewed and interpreted) without new fractures or stenosis - per nsg management - diet per NSG # HTN - SBP 90-100's without medications - cont to follow # HLD - no meds # dispo- pending NSG surgical plan I have discussed the case with NSG -they are planning to consult neuro for additional recs related to weakness Subjective: no appetite Objective: Vital Signs Temp Pulse Resp BP Pulse Ox 37.0 C 82 16 95/64 L 94 03/23/17 08:00 03/23/17 12:00 03/23/17 12:00 03/23/17 12:00 03/23/17 12:00 Laboratory Results 03/22/17 Unknown 03/22/17 13:50 03/22/17 03/23/17 03/24/17 05:59 05:59 05:59 Intake Total 240 Balance 240 PT 14.7 SEC (12.0-15.0) 03/22/17 Unknown INR 1.15 (0.83-1.16) 03/22/17 Unknown - Physical Exam Constitutional: appears nourished Eyes: anicteric sclera Ears, Nose, Mouth, Throat: moist mucous membranes Cardiovascular: regular rate and rhythym Respiratory: no respiratory distress, no rales or rhonchi Gastrointestinal: normoactive bowel sounds, soft, non-tender abdomen Genitourinary: no bladder fullness Skin: warm, normal color Musculoskeletal: No asymmetric calves Neurologic: AAOx3 Psychiatric: interacting appropriately Lymph, Heme, Immunologic: no cervical LAD ICD10 Worksheet Patient Problems: Problems Problem Status Onset Compression fracture of L1 lumbar vertebra Acute Encephalopathy Acute Sepsis secondary to UTI Acute Stroke of unknown etiology Acute T12 vertebral fracture Acute Weakness Acute
--- NOTE | 2017-03-23 14:49 | ASMTCASEMG ---
Living Arrangements What is your living Answers: With Spouse arrangement? Who do you live with? Type Of Residence What kind of residence do Answers: House you live in? Discharge Plan Comments Coordination Status Comments Notes: Patient is an 81yo who sustained an L1 compression fracture on 02-15-17. Patient comes to the hospital with upper motor neuron signs including clonus in both legs. PT/OT/SPL have been ordered. Discharge needs TBD. CM will follow. Date Signed: 03/23/2017 02:49 PM Electronically Signed By:Purnima Gonzalez LCSW
--- NOTE | 2017-03-23 15:05 | GCON ---
[f rep st] CONSULTATION NEUROLOGY CONSULTATION DATE OF CONSULTATION: 03/23/2017 REFERRING PHYSICIAN: Loli Castillo NP CHIEF COMPLAINT: Lower extremity weakness. HISTORY OF PRESENT ILLNESS: The patient is a very pleasant 81-year-old gentleman well known to the Neurology service as I have seen him in 2015 and 2016 for previous strokes and my colleague, Dr. Garza, has seen him more recently in the hospital for dizziness type symptoms. The patient has a complicated neurologic and medical history including previous strokes, previous hip replacement, and an L1 compression fracture along with significant spinal stenosis L4-L5. He has had some slow progressive debilitation generally and feels weakness more prominently in his legs, maximal left. He denies any saddle anesthesia or chanelle incontinence. REVIEW OF SYSTEMS: A 10 point review of systems was done and only pertinent to HPI. For past medical history, family history, social history, allergies, home medications please see the history and physical by Roger Leonardo PA-C PHYSICAL EXAMINATION: VITAL SIGNS: Blood pressure 117/72, heart rate 60s, temperature 37. GENERAL: The patient is in no acute distress, very pleasant. CRANIAL NERVES: Extraocular movements are full. Face is symmetric. Facial sensation is intact. MOTOR: The patient has no focal weakness upper extremities. In the lower extremities, he has 4/5 weakness in his left hip extensor. He also had some mild weakness in his left anterior tibialis. However, exam is limited by the patient having pain from a recent sprained ankle. He had 1 to 2+ reflexes at his patella and ankles bilaterally. He denied sensory loss to light touch. seventy minutes floor time; reviewing inpatient/outpatient records, extensive imaging and in direct counseling with the patient. IMPRESSION AND PLAN: 1. Previous strokes. 2. Lumbar spinal stenosis. 3. L1 compression fracture. 4. Previous hip replacement. The patient's overall debilitation and lack of mobility is multifactorial. I counseled the patient that certainly a component of it may be due to his spinal stenosis and compression fracture. I counseled the patient and his that it is unclear what benefit surgery may have in this setting in terms of his long-term morbidity and mortality and mobility prognosis. Certainly, it is something he and his family should consider seriously and let the Neurosurgery Team know their decision. From my view, it would be more of a palliative procedure at this point to help with any quality of life considering that there are other medical conditions that are likely contributing to his overall debilitation and weakness. I left a lengthy message with the Neurosurgery team regarding these findings. Thank you for this consultation. Please do not hesitate to call if you have any further questions or if there are changes in this patient's neurologic status. /[id number]/MODL MTDD
[2017-03-24] MEDS: ALLOPURINOL 100 MG TAB PO SCH (09:57)
[2017-03-24] MEDS: GABAPENTIN 100 MG CAP PO SCH ×3 (09:57→21:04)
[2017-03-24] MEDS: SENNOSIDES/DOCUSATE SODIUM TAB PO SCH ×2 (09:58→21:04)
--- NOTE | 2017-03-24 10:26 | NEUSURGPN ---
Assessment/Plan: 81 yr old with hx of L1 fracture, L4-5 stenosis, progressive leg weakness Plan: PT/OT to eval/treat Patient was seen by Neurology, will plan to re-condition patient and assess need for lumbar surgery in an out-patient setting. Appreciate medicine input for medical management Lumbar MRI demonstrates stenosis at L4-5 Case management-please eval for placement back to rehab, may dc to rehab when bed available Discussed with Dr Chapman Subjective: Patient sitting in chair, feeling better today wanting to get his legs strong with exercise bike Objective: Patient awake and alert Sitting in chair 4/5 bilateral DF Neuro Check Frequency: per routine Urinary Catheter in Place: No - Physician Discussed Patient with : [facility] Physical Exam - Vitals, I&O, Labs I and O 03/23/17 03/24/17 03/25/17 05:59 05:59 05:59 Intake Total 240 Balance 240 Weight 76.204 kg Intake: Oral (ml) 240 Other: Intake Quantity Yes Sufficient Number of Voids Incontinence 1 3 Number of Stools Bedpan 1 Incontinence 1 Vital Signs Temp Pulse Resp BP Pulse Ox 36.9 C 79 17 119/95 H 96 03/24/17 08:00 03/24/17 08:00 03/24/17 08:00 03/24/17 08:00 03/24/17 08:00 Laboratory Results 03/22/17 Unknown 03/22/17 13:50 ICD10 Worksheet Patient Problems: Problems Problem Status Onset Compression fracture of L1 lumbar vertebra Acute Encephalopathy Acute Sepsis secondary to UTI Acute Stroke of unknown etiology Acute T12 vertebral fracture Acute Weakness Acute
[2017-03-24] MEDS: ACETAMINOPHEN 325 MG TAB PO PRN (11:19)
--- NOTE | 2017-03-24 12:41 | NEUROPROG ---
Assessment: 1. Lumbar Spinal stenosis 2. Weakness I reviewed the interval history again reviewed the records with the patient. He and his feel like he has actually improved a little bit more last couple days and overall would like to hold off on spinal surgery for the time being and try further physical therapy and rehabilitation. They would have close follow-up with Neurosurgery as an outpatient in case the decision of surgical management needs to be reconsidered. No further recommendations now. We will continue to follow this very pleasant patient as needed. Please do not hesitate to call if there are any questions or changes in neurologic status. Subjective: No new symptoms Objective: Vital Signs Temp Pulse Resp BP Pulse Ox 36.2 C 68 16 90/60 L 94 03/24/17 12:00 03/24/17 12:00 03/24/17 12:00 03/24/17 12:00 03/24/17 12:00 Laboratory Results 03/22/17 Unknown 03/22/17 13:50 03/23/17 03/24/17 03/25/17 05:59 05:59 05:59 Intake Total 240 Balance 240 PT 14.7 SEC (12.0-15.0) 03/22/17 Unknown INR 1.15 (0.83-1.16) 03/22/17 Unknown Awake alert No aphasia No myoclonus 35 total minutes floor time; including review of records with the patient, direct counseling and coordination of care. Allergies/Adverse Reactions: Penicillins Allergy (Verified 06/10/16 11:31)
--- NOTE | 2017-03-24 12:48 | HOSPPROG ---
Hospitalist Progress Note Assessment/Plan: # LE weakness - admitted by neurosurgery for eval and possible surgery - MRI (personally reviewed and interpreted) without new fractures or stenosis - per nsg management - cont brace - cont PT/OT # HTN - SBP 90-100's without medications - oxygen saturations 94% on 2L - cont to follow # HLD - no meds # proph - lovenox # diet- regular with thickened liquids # dispo- pending NSG eval and plan I have discussed the case with RN- neurology consulted for additional recs Subjective: pain unchanged Objective: Vital Signs Temp Pulse Resp BP Pulse Ox 36.2 C 68 16 90/60 L 94 03/24/17 12:00 03/24/17 12:00 03/24/17 12:00 03/24/17 12:00 03/24/17 12:00 Laboratory Results 03/22/17 Unknown 03/22/17 13:50 03/23/17 03/24/17 03/25/17 05:59 05:59 05:59 Intake Total 240 Balance 240 PT 14.7 SEC (12.0-15.0) 03/22/17 Unknown INR 1.15 (0.83-1.16) 03/22/17 Unknown - Physical Exam Constitutional: no apparent distress Eyes: anicteric sclera Ears, Nose, Mouth, Throat: moist mucous membranes Cardiovascular: regular rate and rhythym Respiratory: no respiratory distress, no rales or rhonchi Gastrointestinal: normoactive bowel sounds Genitourinary: no bladder fullness Skin: warm, normal color Musculoskeletal: No asymmetric calves Neurologic: AAOx3 Psychiatric: interacting appropriately, No agitated Lymph, Heme, Immunologic: no cervical LAD ICD10 Worksheet Patient Problems: Problems Problem Status Onset Compression fracture of L1 lumbar vertebra Acute Encephalopathy Acute Sepsis secondary to UTI Acute Stroke of unknown etiology Acute T12 vertebral fracture Acute Weakness Acute
--- NOTE | 2017-03-24 16:12 | ASMTCMCOM ---
CM Note CM Note Notes: Pt admitted from [facility] with CVA-like symptoms. He was discharged from [facility] 02/23/17 to [facility] after admission to [facility] for a L1 compression fx. Neurosurgery requested to d/c pt back to [facility] today; left ms but did not receive a return call. CM to follow for d/c needs. Date Signed: 03/24/2017 04:12 PM Electronically Signed By:NATIVIDAD Alcantar
[2017-03-25] MEDS: ALLOPURINOL 100 MG TAB PO SCH (09:23)
[2017-03-25] MEDS: GABAPENTIN 100 MG CAP PO SCH (09:23)
[2017-03-25] MEDS: SENNOSIDES/DOCUSATE SODIUM TAB PO SCH (09:23)
--- NOTE | 2017-03-25 10:34 | HOSPPROG ---
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 prior to dc # HLD - no meds # dispo- pending NSG surgical plan I have discussed the case with NSG -patient will return to rehab today Subjective: tolerating po Objective: Vital Signs Temp Pulse Resp BP Pulse Ox 36.5 C 54 L 12 114/68 95 03/25/17 08:00 03/25/17 08:00 03/25/17 08:00 03/25/17 08:00 03/25/17 08:00 Laboratory Results 03/22/17 Unknown 03/22/17 13:50 03/24/17 03/25/17 03/26/17 05:59 05:59 05:59 Intake Total 400 Output Total 500 Balance -100 PT 14.7 SEC (12.0-15.0) 03/22/17 Unknown INR 1.15 (0.83-1.16) 03/22/17 Unknown - Physical Exam Constitutional: appears nourished Eyes: anicteric sclera Ears, Nose, Mouth, Throat: moist mucous membranes Cardiovascular: regular rate and rhythym, systolic murmur Respiratory: no respiratory distress Gastrointestinal: normoactive bowel sounds Genitourinary: no bladder fullness Skin: warm Musculoskeletal: No asymmetric calves Neurologic: AAOx3 Psychiatric: interacting appropriately Lymph, Heme, Immunologic: no cervical LAD ICD10 Worksheet Patient Problems: Problems Problem Status Onset Compression fracture of L1 lumbar vertebra Acute Encephalopathy Acute Sepsis secondary to UTI Acute Stroke of unknown etiology Acute T12 vertebral fracture Acute Weakness Acute
--- NOTE | 2017-03-25 10:51 | NEUSURGPN ---
Assessment/Plan: 81 yr old with hx of L1 fracture, L4-5 stenosis, progressive leg weakness Plan: PT/OT to eval/treat Patient was seen by Neurology, will plan to re-condition patient and assess need for lumbar surgery in an out-patient setting Patient sitting in chair this am, strength somewhat improved in bilateral lower extremities since admission Appreciate medicine input for medical management Awaiting video swallow study today then ok to dc to rehab Case management-rehab placement Discussed with Dr Chapman Subjective: Patient sitting in chair feeling "ok" Objective: Patient awake and alert Sitting in chair 4/5 left DF Neuro Check Frequency: per routine Urinary Catheter in Place: No - Physician Discussed Patient with : [facility] Physical Exam - Vitals, I&O, Labs I and O 03/24/17 03/25/17 03/26/17 05:59 05:59 05:59 Intake Total 400 300 Output Total 500 Balance -100 300 Intake: Oral (ml) 400 300 Output: Urine (ml) 500 Incontinence 500 Other: Number of Voids Incontinence 3 2 1 Number of Stools Bedpan 1 Incontinence 1 1 Vital Signs Temp Pulse Resp BP Pulse Ox 36.5 C 54 L 12 114/68 95 03/25/17 08:00 03/25/17 08:00 03/25/17 08:00 03/25/17 08:00 03/25/17 08:00 Laboratory Results 03/22/17 Unknown 03/22/17 13:50 ICD10 Worksheet Patient Problems: Problems Problem Status Onset Compression fracture of L1 lumbar vertebra Acute Encephalopathy Acute Sepsis secondary to UTI Acute Stroke of unknown etiology Acute T12 vertebral fracture Acute Weakness Acute
--- NOTE | 2017-03-25 10:57 | PDIAF ---
- Diagnosis Diagnosis: Lumbar stenosis Code Status: Do Not Resuscitate - Medication Management Discharge Medications: Medications to Continue on Transfer Acetaminophen [Tylenol 325mg (*)] 325 mg PO DAILY PRN 02/15/17 [Last Taken 03/22] Allopurinol [Allopurinol 100 MG (*)] 100 mg PO DAILY #30 tab 02/23/17 [Last Taken 03/22/17] Gabapentin [Neurontin 100 MG (*)] 100 mg PO TID cap 02/23/17 [Last Taken ] Polyethylene Glycol 3350 [Miralax 17 gm (*)] 17 gm PO DAILY PRN pkt 02/23/17 [ Last Taken Unknown] Sennosides/Docusate Sodium [Senokot-S] 1 - 2 tab PO BID tab 02/23/17 [Last Taken 03/22/17] LORazepam [Ativan (*)] 0.5 mg PO DAILY PRN 03/22/17 [Last Taken Unknown] oxyCODONE IR [Oxycodone Ir (*)] 5 mg PO DAILY PRN 03/22/17 [Last Taken Unknown] Sennosides/Docusate Sodium [Senokot-S] 1 - 2 tab PO BID tab 03/25/17 [Last Taken Unknown] Discharge Medications: Refer to the Discharge Home Medication list for PRN reason. PICC Care - Routine: N/A - Orders Services needed: Registered Nurse, Certified Chief Of Staff, Master Commercial Coordinator , Physical Therapy, Occupational Therapy, Speech Language Pathologist Diet Recommendation: no restrictions on diet Diet Texture: Regular Texture Diet, [place] Thick Liquids, Water Protocol, Meds Whole w/Liquids - Follow Up Care Current Providers and Referrals: Sam Valdez MD [Primary Care Provider] - Anup Chapman MD [Medical Doctor] - follow up as scheduled (Follow up with Dr Chapman in 3-4 weeks )
--- NOTE | 2017-03-25 12:10 | ASDISCHSUM ---
Discharge Information Plan Status:SNF Medically Cleared to Leave:03/24/2017 Discharge Date:03/24/2017 CM D/C Disposition:Long-Term Facility ADT D/C Disposition:Rehab Care Home Care Projected Discharge Date:03/25/2017 11:00 AM Transportation at D/C:Wheelchair Van Discharge Delay Reason: Follow-Up Date:03/25/2017 11:00 AM Discharge Slot: Final Diagnosis: Placement Information Referral Type:*[facility]/SNF Referral ID:[id number] Provider Name:[facility] Address 1:[address] Address 2: City:[place] Selection Factors: State:[place] Patient Contact Information Contact Name:ROSA Relationship: Address:[address] [place] City:[place] Alternate Phone: State/Zip Code:[place] [address] Email: Financial Information Financial Class: Primary Plan Desc:MEDICARE INPATIENT Primary Plan Number:[id number] Secondary Plan Desc:[facility] Secondary Plan Number:[id number] Assessment Information [facility] Initial CM Assessment Living Arrangements What is your living Answers: With Spouse arrangement? Who do you live with? Type Of Residence What kind of residence do Answers: House you live in? Discharge Plan Comments Coordination Status Comments Notes: Patient is an 81yo who sustained an L1 compression fracture on 02-15-17. Patient comes to the hospital with upper motor neuron signs including clonus in both legs. PT/OT/SPL have been ordered. Discharge needs TBD. CM will follow. Date Signed: 03/23/2017 02:49 PM Electronically Signed By:Purnima Gonzalez LCSW [facility] CM Progress Note CM Note CM Note Notes: [facility]. He was discharged from [facility] 02/23/17 to [facility] after admission to [facility] for a L1 compression fx. Neurosurgery requested to d/c pt back to [facility] today; left ms but did not receive a return call. CM to follow for d/c needs. Date Signed: 03/24/2017 04:12 PM Electronically Signed By:NATIVIDAD Alcantar Case Management Discharge Plan Note Case Management Discharge Discharge Order Complete? Answers: Yes Patient to Obtain Answers: Other Notes: [facility] Transportation Arranged Answers: Other Notes: [facility] Transport will Pick (Date 03/25/2017 01:00 PM & Time) Faxed Final Orders Answers: Yes Family Notified Answers: Yes Discharge Comments Notes: IM signed and in chart. Date Signed: 03/25/2017 12:08 PM Electronically Signed By:NATIVIDAD Alcantar Intervention Information Intervention Type:*IM-Signed Date of Service:03/25/2017 12:08 PM Patient Type:Inpatient Staff Member:NATIVIDAD Mendiola Sharon Hours: Discipline: Severity: Comment:
[2017-03-25 12:19] VITALS: BP 116/75; PULSE 82; RESP 14; TEMP 98; O2SAT 92
== END 2017-03-25 13:15 | DRG 552 ==
LOC: F3N 11:46 → OBSVTOIN 12:40
PROVIDERS: ADMIT Neurological Surgery; ATTEND Neurological Surgery
PROC: 02HV33Z Insertion of Infusion Device into Superior Vena Cava, Percutaneous Approach (ICD-10-PCS; principal; 2017-03-22)
DX: M48.061 Spinal stenosis, lumbar region without neurogenic claudication (principal); S32.019D Unspecified fracture of first lumbar vertebra, subsequent encounter for fracture with routine healing; W19.XXXD Unspecified fall, subsequent encounter; R13.10 Dysphagia, unspecified; L89.151 Pressure ulcer of sacral region, stage 1; L89.891 Pressure ulcer of other site, stage 1; I12.9 Hypertensive chronic kidney disease with stage 1 through stage 4 chronic kidney disease, or unspecified chronic kidney disease; N18.9 Chronic kidney disease, unspecified; E78.5 Hyperlipidemia, unspecified; Z86.73 Personal history of transient ischemic attack (TIA), and cerebral infarction without residual deficits; Z96.642 Presence of left artificial hip joint
CPT/HCPCS: 92526-GN; 92610-GN; 92611-GN; 97116-GP; 97162-GP; 97166-GO; 97530-GO; 97530-GP; 97535-GO; C1751; G8978-GP-CL; G8979-GP-CK; G8980-GP-CL; G8987-GO-CM; G8988-GO-CJ; G8996-GN-CI; G8996-GN-CJ; G8997-GN-CI

== ENCOUNTER → 2017-05-26 | Outpatient (CLI) | payer OTHER | PROVIDERS: ATTEND Family Medicine Geriatric Medicine | DX: R13.10 Dysphagia, unspecified (principal) | CPT/HCPCS: 74230; 92611; G8996; G8997; G8998 ==

== ENCOUNTER → 2017-06-02 | Outpatient (CLI) | payer OTHER | LOC: FIMAGING 10:10 | PROVIDERS: ATTEND Neurological Surgery | DX: S32.010D Wedge compression fracture of first lumbar vertebra, subsequent encounter for fracture with routine healing (principal); M51.36 Other intervertebral disc degeneration, lumbar region; M43.16 Spondylolisthesis, lumbar region; M46.1 Sacroiliitis, not elsewhere classified ==

== ENCOUNTER → 2017-07-04 | Outpatient (CLI) | payer OTHER | LOC: FIMAGING 15:05 | PROVIDERS: ATTEND Internal Medicine | DX: I82.411 Acute embolism and thrombosis of right femoral vein (principal) ==